=== PATIENT | male | born 1960 | race Caucasian/White ===

== ENCOUNTER 2016-12-04 03:39 | Emergency (ER) | payer MEDICAID ==
[~2016-12-04] VITALS: Ht 175.3 cm; Wt 80.0 kg
[~2016-12-04 03:39] MED LIST: ALBU18HF INH; ASPI-650 PO; ATOR20TA PO; CEFD300C37 PO; DOXY100T PO; ERYT30GE2 EACHEYE; ERYTHROMYCIN EYE EACHEYE; FOLI-17 PO; HYDR-3240 PO; HYDR-3307 PO; HYDR-882 PO; LEVO25TA2 PO; LISI5TAB PO; LISI5TAB7 PO; LORA-446 PO; LOSA25TA5 PO; MAGN400T26 PO; METO25TA2 PO; METO25TA35 PO; OXYC5TAB3 PO; PANT40TA3 PO; PRAV40TA2 PO; PRED20TA PO; THIA100T6 PO; TRAM-28 PO
[2016-12-04] MEDS ORDERED: METHOCARBAMOL 750 MG TABLET ONE (03:59)
[2016-12-04] MEDS ORDERED: KETOROLAC 30 MG/1 ML ONE (03:59)
[2016-12-04] MEDS ORDERED: KETOROLAC 30 MG/1 ML IM ONE (04:00)
[2016-12-04] MEDS ORDERED: METHOCARBAMOL 750 MG TABLET PO ONE (04:00)
[2016-12-04 04:05] VITALS: BP 146/103
[2016-12-04 04:51] LABS: ASPARTATE AMINO TRANSFERASE 57 U/L (15-37); BLOOD UREA NITROGEN 8 mg/dL (7-18)
[2016-12-05] MEDS ORDERED: TRAM50TA2 PO (17:20)
[2016-12-05] MEDS ORDERED: LOSA25TA5 PO (17:20)
== END 2016-12-04 05:55 | disposition left against medical advice (07) ==
LOC: ED 03:56
DX: F10.120 Alcohol abuse with intoxication, uncomplicated (principal); I25.2 Old myocardial infarction; E78.5 Hyperlipidemia, unspecified; I10 Essential (primary) hypertension; Z85.9 Personal history of malignant neoplasm, unspecified; F17.210 Nicotine dependence, cigarettes, uncomplicated
CPT/HCPCS: 36415; 80053; 80307; 85025; 96372; 99284; J1885

== ENCOUNTER 2016-12-05 04:23 | Emergency (ER) | payer MEDICAID ==
[~2016-12-05] VITALS: Ht 175.3 cm; Wt 82.0 kg
[2016-12-05 04:29] VITALS: BP 131/87
[2016-12-05] MEDS ORDERED: TRAM50TA2 PO (17:20)
[2016-12-05] MEDS ORDERED: LOSA25TA5 PO (17:20)
== END 2016-12-05 05:54 | disposition home or self-care (01) ==
LOC: ED 05:48
DX: F10.220 Alcohol dependence with intoxication, uncomplicated (principal); E78.5 Hyperlipidemia, unspecified; I48.91 Unspecified atrial fibrillation; I10 Essential (primary) hypertension; I25.2 Old myocardial infarction; Z85.9 Personal history of malignant neoplasm, unspecified
CPT/HCPCS: 99283

== ENCOUNTER 2016-12-05 11:25 | Observation (INO) | payer MEDICAID ==
[~2016-12-05] VITALS: Ht 175.3 cm; Wt 77.5 kg
[2016-12-05 12:26] LABS: DAU SCREEN DISCLAIMER
[2016-12-05] MEDS ORDERED: CHLORDIAZEPOXIDE 25 MG CAPSULE PO ONE (12:30)
[2016-12-05 12:47] LABS: BLOOD UREA NITROGEN 10 mg/dL (7-18)
[2016-12-05 12:50] LABS: ASPARTATE AMINO TRANSFERASE 73 U/L (15-37)
[2016-12-05 12:51] LABS: ACETAMINOPHEN < 2 mcg/mL (10-30)
[2016-12-05] MEDS ORDERED: TRAM50TA2 PO (17:20)
[2016-12-05] MEDS ORDERED: LOSA25TA5 PO (17:20)
[2016-12-05] MEDS ORDERED: THIAMINE 100 MG/ML, 2ML IM ONE (18:00)
[2016-12-05] MEDS ORDERED: ONDANSETRON 4 MG TABLET PO PRN (18:00)
[2016-12-05] MEDS ORDERED: LORazepam 2 MG/ML, 1ML IM PRN ×2 (18:00)
[2016-12-05] MEDS ORDERED: ACETAMINOPHEN 325 MG TABLET PO PRN (18:00)
[2016-12-05] MEDS ORDERED: LORazepam 1MG TABLET ONE (18:03)
[2016-12-05] MEDS: LORazepam 1MG TABLET PO PRN ×2 (18:06→18:48)
[2016-12-05 18:50] VITALS: BP 128/85
[2016-12-05 19:20] VITALS: BP 112/77
[2016-12-05] MEDS: THIAMINE 100MG TABLET PO SCH (21:18)
[2016-12-06] MEDS: LORazepam 1MG TABLET PO PRN ×3 (04:10→16:53)
[2016-12-06] MEDS: ASPIRIN 81 MG TABLET EC PO SCH (06:00)
[2016-12-06 08:21] VITALS: BP 145/81
[2016-12-06] MEDS: MULTIVITAMIN 1 TABLET PO SCH (08:50)
[2016-12-06] MEDS: FOLIC ACID 1 MG TABLET PO SCH (08:50)
[2016-12-06] MEDS: THIAMINE 100MG TABLET PO SCH (08:50)
[2016-12-06] MEDS: LOSARTAN 25MG TABLET PO SCH (08:51)
[2016-12-06 19:20] VITALS: BP 118/83
[2016-12-07] MEDS: ASPIRIN 81 MG TABLET EC PO SCH (05:46)
[2016-12-07] MEDS ORDERED: CLON-364 PO (07:41)
[2016-12-07] MEDS ORDERED: GABA100C8 PO (07:41)
[2016-12-07] MEDS ORDERED: TAMS-11 PO (07:41)
[2016-12-07] MEDS ORDERED: DULO30CA2 PO (07:41)
[2016-12-07 07:44] VITALS: BP 141/90
[2016-12-07] MEDS: LORazepam 1MG TABLET PO PRN ×2 (08:01→19:56)
[2016-12-07] MEDS: LOSARTAN 25MG TABLET PO SCH (09:00)
[2016-12-07] MEDS: THIAMINE 100MG TABLET PO SCH (09:01)
[2016-12-07] MEDS: FOLIC ACID 1 MG TABLET PO SCH (09:01)
[2016-12-07] MEDS: MULTIVITAMIN 1 TABLET PO SCH (09:01)
[2016-12-07] MEDS ORDERED: LIDODERM 5% PATCH TD PRN (10:00)
[2016-12-07] MEDS ORDERED: LIDODERM 5% PATCH TD SCH (10:00)
[2016-12-07] MEDS: ENOXAPARIN 40 MG/0.4 ML SQ SCH (17:13)
[2016-12-07 20:00] VITALS: BP 148/99
[2016-12-07] MEDS: KETOROLAC 30 MG/1 ML IM SCH (20:26)
[2016-12-08] MEDS: ASPIRIN 81 MG TABLET EC PO SCH (05:37)
[2016-12-08] MEDS: KETOROLAC 30 MG/1 ML IM SCH (05:37)
[2016-12-08 07:57] VITALS: BP 120/84
[2016-12-08] MEDS: LORazepam 1MG TABLET PO PRN ×2 (08:39→12:40)
[2016-12-08] MEDS: LOSARTAN 25MG TABLET PO SCH (08:40)
[2016-12-08] MEDS: THIAMINE 100MG TABLET PO SCH (08:41)
[2016-12-08] MEDS: FOLIC ACID 1 MG TABLET PO SCH (08:41)
[2016-12-08] MEDS: MULTIVITAMIN 1 TABLET PO SCH (08:41)
[2016-12-08] MEDS: KETOROLAC 30 MG/1 ML IM PRN (12:33)
[2016-12-08] MEDS: ENOXAPARIN 40 MG/0.4 ML SQ SCH (16:49)
[2016-12-08 20:00] VITALS: BP 114/82
[2016-12-09 05:59] LABS: BLOOD UREA NITROGEN 21 mg/dL (7-18)
[2016-12-09] MEDS: ASPIRIN 81 MG TABLET EC PO SCH (06:16)
[2016-12-09 08:00] VITALS: BP 126/91
[2016-12-09] MEDS: KETOROLAC 30 MG/1 ML IM PRN ×3 (09:17→20:41)
[2016-12-09] MEDS: MULTIVITAMIN 1 TABLET PO SCH (09:18)
[2016-12-09] MEDS: LORazepam 1MG TABLET PO PRN ×3 (09:18→20:40)
[2016-12-09] MEDS: FOLIC ACID 1 MG TABLET PO SCH (09:18)
[2016-12-09] MEDS: THIAMINE 100MG TABLET PO SCH (09:19)
[2016-12-09] MEDS: LOSARTAN 25MG TABLET PO SCH (09:19)
[2016-12-09] MEDS: ENOXAPARIN 40 MG/0.4 ML SQ SCH (17:00)
[2016-12-09 19:36] VITALS: BP 110/78
[2016-12-10 08:09] VITALS: BP 119/85
[2016-12-10] MEDS: MULTIVITAMIN 1 TABLET PO SCH (08:16)
[2016-12-10] MEDS: LOSARTAN 25MG TABLET PO SCH (08:16)
[2016-12-10] MEDS: ASPIRIN 81 MG TABLET EC PO SCH (08:16)
[2016-12-10] MEDS: THIAMINE 100MG TABLET PO SCH (08:17)
[2016-12-10] MEDS: FOLIC ACID 1 MG TABLET PO SCH (08:36)
[2016-12-10] MEDS: LORazepam 1MG TABLET PO PRN ×3 (08:37→23:23)
[2016-12-10] MEDS: KETOROLAC 30 MG/1 ML IM PRN ×3 (08:38→23:38)
[2016-12-10] MEDS: ENOXAPARIN 40 MG/0.4 ML SQ SCH (16:57)
[2016-12-10 20:02] VITALS: BP 109/81
[2016-12-11] MEDS: MULTIVITAMIN 1 TABLET PO SCH (08:33)
[2016-12-11] MEDS: FOLIC ACID 1 MG TABLET PO SCH (08:33)
[2016-12-11] MEDS: ASPIRIN 81 MG TABLET EC PO SCH (08:33)
[2016-12-11] MEDS: THIAMINE 100MG TABLET PO SCH (08:33)
[2016-12-11] MEDS: LORazepam 1MG TABLET PO PRN ×2 (08:33→16:47)
[2016-12-11] MEDS: LOSARTAN 25MG TABLET PO SCH (08:34)
[2016-12-11] MEDS: KETOROLAC 30 MG/1 ML IM PRN ×3 (08:35→22:38)
[2016-12-11 08:36] VITALS: BP 119/75
[2016-12-11] MEDS: ENOXAPARIN 40 MG/0.4 ML SQ SCH (16:50)
[2016-12-11] MEDS ORDERED: ASPIRIN 81 MG TABLET CHEW PO ONE (17:00)
[2016-12-11 17:15] VITALS: BP 134/94
[2016-12-11 17:47] VITALS: BP 122/80
[2016-12-11 18:00] LABS: IS PT STATUS REG ER OR PRE ER? NO
[2016-12-11 19:45] VITALS: BP 119/83
[2016-12-11 23:41] LABS: IS PT STATUS REG ER OR PRE ER? NO
[2016-12-12 06:12] LABS: BLOOD UREA NITROGEN 17 mg/dL (7-18)
[2016-12-12 06:19] LABS: IS PT STATUS REG ER OR PRE ER? NO
[2016-12-12 08:01] VITALS: BP 130/97
[2016-12-12] MEDS: FOLIC ACID 1 MG TABLET PO SCH (09:06)
[2016-12-12] MEDS: LORazepam 1MG TABLET PO PRN ×2 (09:06→16:56)
[2016-12-12] MEDS: ASPIRIN 81 MG TABLET EC PO SCH (09:06)
[2016-12-12] MEDS: THIAMINE 100MG TABLET PO SCH (09:07)
[2016-12-12] MEDS: MULTIVITAMIN 1 TABLET PO SCH (09:07)
[2016-12-12] MEDS: LOSARTAN 25MG TABLET PO SCH (09:07)
[2016-12-12] MEDS: KETOROLAC 30 MG/1 ML IM PRN ×2 (09:09→16:58)
[2016-12-12] MEDS: ENOXAPARIN 40 MG/0.4 ML SQ SCH (16:54)
[2016-12-12 20:00] VITALS: BP 113/77
== END 2016-12-12 21:00 ==
LOC: ED 13:44 → EDIP 17:05 → 3E 18:29
PROVIDERS: ADMIT Hospitalist; ATTEND Hospitalist
DX: R45.851 Suicidal ideations (principal); F32.9 Major depressive disorder, single episode, unspecified; F41.9 Anxiety disorder, unspecified; E78.5 Hyperlipidemia, unspecified; F17.210 Nicotine dependence, cigarettes, uncomplicated; F43.10 Post-traumatic stress disorder, unspecified; G89.29 Other chronic pain; I10 Essential (primary) hypertension; I48.0 Paroxysmal atrial fibrillation; I25.2 Old myocardial infarction; I25.10 Atherosclerotic heart disease of native coronary artery without angina pectoris; F10.229 Alcohol dependence with intoxication, unspecified; J44.9 Chronic obstructive pulmonary disease, unspecified; Z85.828 Personal history of other malignant neoplasm of skin; Z91.5 Personal history of self-harm; Z98.61 Coronary angioplasty status
CPT/HCPCS: 36415; 80048; 80053; 80307; 80329; 84484; 85025; 93005; 96372; 99285; G0378; J1650; J1885; J3411; G0480

== ENCOUNTER 2017-09-25 08:12 | Emergency (ER) | payer MEDICAID ==
[~2017-09-25] VITALS: Ht 177.8 cm; Wt 75.0 kg
[~2017-09-25 08:12] MED LIST changes: +CLON-364 PO; +DULO30CA2 PO; +GABA-826 PO; +TAMS-11 PO; -TRAM-28 PO; +TRAM-47 PO; +TRAM50TA2 PO
[2017-09-25 08:39] VITALS: BP 148/101
[2017-09-25 09:04] LABS: BASOPHILS # (AUTO) 0.03 x10^3/uL (0-0.1); BASOPHILS % (AUTO) 0 % (0-1); EOSINOPHILS % (AUTO) 1 % (1-7); LYMPHOCYTES # (AUTO) 2.36 x10^3/uL (1-3.4); LYMPHOCYTES % (AUTO) 23 % (22-44); MD NO; MEAN CORPUSCULAR HEMOGLOBIN 32.9 pg (27.5-34.5); MEAN CORPUSCULAR HGB CONC 34.7 g/dL (33.2-36.2); MEAN CORPUSCULAR VOLUME 94.9 fL (81-97); MEAN PLATELET VOLUME 7.6 fL (7.4-10.4); MONOCYTES # (AUTO) 1.05 x10^3/uL (0.2-0.8); MONOCYTES % (AUTO) 10 % (2-9); NEUTROPHILS # (AUTO) 6.74 x10^3/uL (1.8-6.8); NEUTROPHILS % (AUTO) 66 % (42-75); PLATELET COUNT 359 x10^3/uL (130-400); RED CELL DISTRIBUTION WIDTH 14.5 % (9.4-14.8)
[2017-09-25 09:10] LABS: ALANINE AMINOTRANSFERASE 48 U/L (12-78); ALBUMIN 3.8 g/dL (3.4-5.0); ANION GAP 13 mmol/L (5-15); CALCIUM 8.3 mg/dL (8.5-10.1); CHLORIDE 104 mmol/L (98-107); CREATININE 1.16 mg/dL (0.7-1.3); SALICYLATE LEVEL 3.4 mg/dL (2.8-20.0)
[2017-09-25 09:12] LABS: ALKALINE PHOSPHATASE 121 U/L (45-117); BILIRUBIN,TOTAL 1.6 mg/dL (0.2-1.0); TOTAL PROTEIN 7.2 g/dL (6.4-8.2)
[2017-09-25 09:13] LABS: ACETAMINOPHEN < 2 mcg/mL (10-30)
[2017-09-25 09:18] LABS: AMPHETAMINE SCREEN, URINE Negative (Negative); BARBITURATE SCREEN, URINE Negative (Negative); BENZODIAZEPINE SCREEN, URINE Negative (Negative); CANNABINOID SCREEN, URINE Negative (Negative); COCAINE SCREEN, URINE Negative (Negative); METHADONE SCREEN, URINE Negative (Negative); OPIATE SCREEN, URINE Negative (Negative)
[2017-09-25] MEDS ORDERED: LORazepam 1MG TABLET ONE (09:21)
[2017-09-25] MEDS: LORazepam 2 MG/ML, 1ML IVPush ONE ×2 (09:24→09:30)
[2017-09-25] MEDS ORDERED: LORazepam 1MG TABLET PO ONE (11:00)
[2017-09-26] MEDS ORDERED: ASPI-496 PO (16:11)
== END 2017-09-25 11:39 | disposition home or self-care (01) ==
LOC: ED 09:12
DX: F41.1 Generalized anxiety disorder (principal); F32.9 Major depressive disorder, single episode, unspecified; I48.91 Unspecified atrial fibrillation; E78.5 Hyperlipidemia, unspecified; I10 Essential (primary) hypertension; I25.10 Atherosclerotic heart disease of native coronary artery without angina pectoris; Z79.899 Other long term (current) drug therapy
CPT/HCPCS: 36415; 80053; 80307; 80329; 85025; 99284; G0480; J2060

== ENCOUNTER 2017-09-26 11:50 | Observation (INO) | payer MEDICAID ==
[~2017-09-26] VITALS: Ht 177.8 cm; Wt 75.0 kg
[2017-09-26] MEDS ORDERED: LORazepam 1MG TABLET ONE (12:52)
[2017-09-26] MEDS ORDERED: LORazepam 1MG TABLET PO ONE (13:00)
[2017-09-26 13:13] LABS: BASOPHILS # (AUTO) 0.03 x10^3/uL (0-0.1); BASOPHILS % (AUTO) 0 % (0-1); EOSINOPHILS # (AUTO) 0.09 x10^3/uL (0-0.4); EOSINOPHILS % (AUTO) 1 % (1-7); LYMPHOCYTES # (AUTO) 2.45 x10^3/uL (1-3.4); LYMPHOCYTES % (AUTO) 27 % (22-44); MD NO; MEAN CORPUSCULAR HEMOGLOBIN 32.7 pg (27.5-34.5); MEAN CORPUSCULAR HGB CONC 34.3 g/dL (33.2-36.2); MEAN CORPUSCULAR VOLUME 95.3 fL (81-97); MEAN PLATELET VOLUME 7.6 fL (7.4-10.4); MONOCYTES # (AUTO) 0.76 x10^3/uL (0.2-0.8); MONOCYTES % (AUTO) 8 % (2-9); NEUTROPHILS # (AUTO) 5.79 x10^3/uL (1.8-6.8); NEUTROPHILS % (AUTO) 64 % (42-75); PLATELET COUNT 348 x10^3/uL (130-400); RED BLOOD COUNT 5.27 x10^6/uL (4.38-5.82)
[2017-09-26 13:25] LABS: ALBUMIN 3.7 g/dL (3.4-5.0); ANION GAP 15 mmol/L (5-15); CALCIUM 7.8 mg/dL (8.5-10.1); CHLORIDE 108 mmol/L (98-107)
[2017-09-26 13:29] LABS: ALANINE AMINOTRANSFERASE 42 U/L (12-78); ALKALINE PHOSPHATASE 98 U/L (45-117); CREATININE 1.07 mg/dL (0.7-1.3); TOTAL PROTEIN 6.9 g/dL (6.4-8.2)
[2017-09-26 13:31] LABS: ACETAMINOPHEN < 2 mcg/mL (10-30); SALICYLATE LEVEL < 1.7 mg/dL (2.8-20.0)
[2017-09-26 14:13] LABS: AMPHETAMINE SCREEN, URINE Negative (Negative); BARBITURATE SCREEN, URINE Negative (Negative); BENZODIAZEPINE SCREEN, URINE Negative (Negative); CANNABINOID SCREEN, URINE Negative (Negative); COCAINE SCREEN, URINE Negative (Negative); METHADONE SCREEN, URINE Negative (Negative); OPIATE SCREEN, URINE Negative (Negative)
[2017-09-26] MEDS ORDERED: ASPI-496 PO (16:11)
[2017-09-26] MEDS ORDERED: ONDANSETRON ODT 4 MG PO PRN (17:30)
[2017-09-26] MEDS ORDERED: LORazepam 1MG TABLET PO PRN ×4 (17:30)
[2017-09-26] MEDS ORDERED: ACETAMINOPHEN 325 MG TABLET PO PRN (17:30)
[2017-09-26] MEDS ORDERED: KETOROLAC 30 MG/1 ML IVPush PRN (17:30)
[2017-09-26] MEDS: FOLIC ACID 1 MG TABLET PO SCH (17:30)
[2017-09-26] MEDS ORDERED: LORazepam 0.5MG TABLET PO PRN (17:30)
[2017-09-26] MEDS ORDERED: DOCUSATE 100 MG CAPSULE PO PRN (17:30)
[2017-09-26] MEDS ORDERED: KETOROLAC 30 MG/1 ML IM ONE (19:00)
[2017-09-26] MEDS ORDERED: THIAMINE 100MG TABLET ONE (20:11)
[2017-09-26] MEDS ORDERED: ENOXAPARIN 40 MG/0.4 ML ONE (20:11)
[2017-09-26] MEDS: ENOXAPARIN 40 MG/0.4 ML SQ SCH (20:18)
[2017-09-26] MEDS: THIAMINE 100MG TABLET PO SCH (20:18)
[2017-09-27 05:57] LABS: ANION GAP 9 mmol/L (5-15); CHLORIDE 104 mmol/L (98-107)
[2017-09-27] MEDS: THIAMINE 100MG TABLET PO SCH (09:00)
[2017-09-27] MEDS: FOLIC ACID 1 MG TABLET PO SCH (09:00)
[2017-09-27] MEDS: LOSARTAN 25MG TABLET PO SCH (09:00)
[2017-09-27] MEDS: ASPIRIN 81 MG TABLET EC PO SCH (09:08)
[2017-09-27] MEDS: MULTIVITAMINS/MINERALS TABLET PO SCH (09:09)
[2017-09-27] MEDS ORDERED: LORazepam 1MG TABLET ONE (14:13)
[2017-09-27] MEDS: METHOCARBAMOL 500 MG TABLET PO PRN (15:04)
[2017-09-27] MEDS ORDERED: ENOXAPARIN 40 MG/0.4 ML ONE (22:23)
[2017-09-27] MEDS: ENOXAPARIN 40 MG/0.4 ML SQ SCH (22:33)
[2017-09-28 00:17] VITALS: BP 146/102
[2017-09-28] MEDS: METHOCARBAMOL 500 MG TABLET PO PRN (01:50)
[2017-09-28 08:18] VITALS: BP 154/88
[2017-09-28] MEDS: MULTIVITAMINS/MINERALS TABLET PO SCH (09:00)
[2017-09-28] MEDS: LOSARTAN 25MG TABLET PO SCH (09:00)
[2017-09-28] MEDS: ASPIRIN 81 MG TABLET EC PO SCH (10:17)
[2017-09-28] MEDS: FOLIC ACID 1 MG TABLET PO SCH (10:18)
[2017-09-28] MEDS: SERTRALINE 50MG TABLET PO SCH (10:18)
[2017-09-28] MEDS: THIAMINE 100MG TABLET PO SCH (10:18)
[2017-09-28] MEDS ORDERED: LIDODERM 5% PATCH TD ONE (11:00)
[2017-09-28] MEDS: KETOROLAC 30 MG/1 ML IM SCH ×3 (11:07→21:23)
[2017-09-28] MEDS: ACETAMINOPHEN 500 MG TABLET PO SCH ×4 (11:07→23:38)
[2017-09-28] MEDS: METHOCARBAMOL 750 MG TABLET PO SCH ×2 (11:07→19:41)
[2017-09-28] MEDS: ENOXAPARIN 40 MG/0.4 ML SQ SCH (17:30)
[2017-09-28 19:40] VITALS: BP 147/93
[2017-09-29 07:50] VITALS: BP 148/94
[2017-09-29] MEDS: LOSARTAN 25MG TABLET PO SCH (08:51)
[2017-09-29] MEDS: ASPIRIN 81 MG TABLET EC PO SCH (08:51)
[2017-09-29] MEDS: FOLIC ACID 1 MG TABLET PO SCH (08:52)
[2017-09-29] MEDS: THIAMINE 100MG TABLET PO SCH (08:52)
[2017-09-29] MEDS: SERTRALINE 50MG TABLET PO SCH (08:52)
[2017-09-29] MEDS: MULTIVITAMINS/MINERALS TABLET PO SCH (09:00)
[2017-09-29] MEDS ORDERED: IBUPROFEN 800 MG TABLET PO PRN (12:30)
[2017-09-29] MEDS ORDERED: METHOCARBAMOL 750 MG TABLET PO PRN (12:30)
[2017-09-29] MEDS ORDERED: IBUPROFEN 600 MG TABLET ONE (12:40)
[2017-09-29] MEDS ORDERED: IBUPROFEN 200 MG TABLET ONE (12:41)
[2017-09-29] MEDS ORDERED: LIDODERM 5% PATCH TD SCH (14:00)
== END 2017-09-29 16:58 ==
LOC: ED 15:36 → EDIP 15:37 → ED 15:48 → 2N 09-28 00:13
PROVIDERS: ADMIT Internal Medicine; ATTEND Internal Medicine
DX: T14.91XA Suicide attempt, initial encounter (principal); F33.2 Major depressive disorder, recurrent severe without psychotic features; M54.9 Dorsalgia, unspecified; G89.29 Other chronic pain; E87.6 Hypokalemia; E87.2 Acidosis; F10.229 Alcohol dependence with intoxication, unspecified; E83.51 Hypocalcemia; I10 Essential (primary) hypertension; I48.0 Paroxysmal atrial fibrillation; J44.9 Chronic obstructive pulmonary disease, unspecified; E78.5 Hyperlipidemia, unspecified; X78.9XXA Intentional self-harm by unspecified sharp object, initial encounter; Y93.89 Activity, other specified; Y92.89 Other specified places as the place of occurrence of the external cause; Y99.8 Other external cause status; I25.10 Atherosclerotic heart disease of native coronary artery without angina pectoris; F17.210 Nicotine dependence, cigarettes, uncomplicated; Z80.1 Family history of malignant neoplasm of trachea, bronchus and lung; Z82.49 Family history of ischemic heart disease and other diseases of the circulatory system; Z85.828 Personal history of other malignant neoplasm of skin; Z91.5 Personal history of self-harm; Z98.61 Coronary angioplasty status
CPT/HCPCS: 36415; 72114; 80048; 80053; 80307; 80329; 82330; 82550; 85025; 96372; 96374; 99285; G0378; J1650; J1885; G0480

== ENCOUNTER 2018-03-29 17:43 | Emergency (ER) | payer MEDICAID ==
[~2018-03-29] VITALS: Ht 175.3 cm; Wt 78.0 kg
[~2018-03-29 17:43] MED LIST changes: +ASPI-496 PO; -CLON-364 PO; +CLON0.5T11 PO; -THIA100T6 PO; +THIA100T67 PO
[2018-03-29 17:49] VITALS: BP 105/73
== END 2018-03-29 18:12 | disposition home or self-care (01) ==
LOC: ED 18:06
DX: F10.120 Alcohol abuse with intoxication, uncomplicated (principal); E78.5 Hyperlipidemia, unspecified; F32.9 Major depressive disorder, single episode, unspecified; I25.2 Old myocardial infarction; I10 Essential (primary) hypertension
CPT/HCPCS: 99283

== ENCOUNTER 2018-03-30 00:58 | Emergency (ER) | payer MEDICAID ==
[~2018-03-30] VITALS: Ht 175.3 cm; Wt 78.0 kg
[2018-03-30 01:52] LABS: BASOPHILS # (AUTO) 0.06 x10^3/uL (0-0.1); BASOPHILS % (AUTO) 1 % (0-1); EOSINOPHILS # (AUTO) 0.12 x10^3/uL (0-0.4); EOSINOPHILS % (AUTO) 1 % (1-7); LYMPHOCYTES # (AUTO) 3.88 x10^3/uL (1-3.4); LYMPHOCYTES % (AUTO) 38 % (22-44); MD NO; MEAN CORPUSCULAR HGB CONC 34.4 g/dL (33.2-36.2); MEAN CORPUSCULAR VOLUME 96.1 fL (81-97); MEAN PLATELET VOLUME 7.7 fL (7.4-10.4); MONOCYTES # (AUTO) 0.82 x10^3/uL (0.2-0.8); MONOCYTES % (AUTO) 8 % (2-9); NEUTROPHILS # (AUTO) 5.29 x10^3/uL (1.8-6.8); NEUTROPHILS % (AUTO) 52 % (42-75); PLATELET COUNT 258 x10^3/uL (130-400); RED BLOOD COUNT 4.76 x10^6/uL (4.38-5.82); RED CELL DISTRIBUTION WIDTH 15.8 % (9.4-14.8)
[2018-03-30 02:04] LABS: ALANINE AMINOTRANSFERASE 21 U/L (12-78); ALBUMIN 3.4 g/dL (3.4-5.0); ANION GAP 11 mmol/L (5-15); CALCIUM 8.1 mg/dL (8.5-10.1); CHLORIDE 111 mmol/L (98-107); SALICYLATE LEVEL 2.5 mg/dL (2.8-20.0)
[2018-03-30 02:07] LABS: ALKALINE PHOSPHATASE 108 U/L (45-117); BILIRUBIN,TOTAL 0.2 mg/dL (0.2-1.0); CREATININE 1.27 mg/dL (0.7-1.3); TOTAL PROTEIN 6.4 g/dL (6.4-8.2)
[2018-03-30 02:09] LABS: AMPHETAMINE SCREEN, URINE Negative (Negative); BARBITURATE SCREEN, URINE Negative (Negative); BENZODIAZEPINE SCREEN, URINE Negative (Negative); CANNABINOID SCREEN, URINE Negative (Negative); COCAINE SCREEN, URINE Negative (Negative); METHADONE SCREEN, URINE Negative (Negative); OPIATE SCREEN, URINE Negative (Negative)
[2018-03-30 02:16] LABS: ACETAMINOPHEN < 2 mcg/mL (10-30)
[2018-03-30 08:16] VITALS: BP 141/94
== END 2018-03-30 09:12 | disposition home or self-care (01) ==
LOC: ED 05:15
DX: F10.220 Alcohol dependence with intoxication, uncomplicated (principal); E78.5 Hyperlipidemia, unspecified; I10 Essential (primary) hypertension; I48.91 Unspecified atrial fibrillation; I25.10 Atherosclerotic heart disease of native coronary artery without angina pectoris; Z72.9 Problem related to lifestyle, unspecified
CPT/HCPCS: 36415; 80053; 80307; 80329; 85025; 99284; G0480

== ENCOUNTER → 2018-11-25 | Outpatient (CLI) | payer MEDICAID ==
[~2018-11-25] MED LIST changes: +HYDR-3653 PO; -HYDR-882 PO; +LOSA25TA25 PO; -LOSA25TA5 PO; +REGADENOSON 0.4 MG/5 ML SYRINGE ONE
== END | disposition home or self-care (01) ==
LOC: CFH 08:36
PROVIDERS: ATTEND Internal Medicine Cardiovascular Disease
DX: I25.10 Atherosclerotic heart disease of native coronary artery without angina pectoris (principal); I31.0 Chronic adhesive pericarditis
CPT/HCPCS: 78452; 93017; A9502; J2785

== ENCOUNTER 2019-01-15 14:54 | Emergency (ER) | payer MEDICAID ==
[~2019-01-15] VITALS: Ht 177.8 cm; Wt 85.4 kg
[~2019-01-15 14:54] MED LIST changes: -REGADENOSON 0.4 MG/5 ML SYRINGE ONE
[2019-01-15 15:15] LABS: BASOPHILS # (AUTO) 0.05 x10^3/uL (0-0.1); BASOPHILS % (AUTO) 0 % (0-1); EOSINOPHILS % (AUTO) 1 % (1-7); LYMPHOCYTES % (AUTO) 26 % (22-44); MD NO; MEAN CORPUSCULAR HEMOGLOBIN 32.1 pg (27.5-34.5); MEAN CORPUSCULAR HGB CONC 33.5 g/dL (33.2-36.2); MEAN CORPUSCULAR VOLUME 95.8 fL (81-97); MEAN PLATELET VOLUME 7.8 fL (7.4-10.4); MONOCYTES # (AUTO) 0.86 x10^3/uL (0.2-0.8); MONOCYTES % (AUTO) 6 % (2-9); NEUTROPHILS % (AUTO) 67 % (42-75); PLATELET COUNT 344 x10^3/uL (130-400); RED BLOOD COUNT 5.37 x10^6/uL (4.38-5.82); RED CELL DISTRIBUTION WIDTH 13.1 % (9.4-14.8)
[2019-01-15 15:26] LABS: INTERNATIONAL NORMALIZED RATIO 0.92 (0.93-1.1); PROTHROMBIN TIME 9.7 Seconds (9.6-11.5)
--- NOTE | 2019-01-15 15:36 | NUR ---
Patient returned from CT at this time. Alert & oriented x4 with no change in neuro status.
[2019-01-15] MEDS ORDERED: LORA-247 PO (15:44)
[2019-01-15] MEDS ORDERED: MULT-658 PO (15:44)
[2019-01-15] MEDS ORDERED: TAMS-11 PO (15:44)
[2019-01-15] MEDS ORDERED: OMEG1CAP23 PO (15:44)
[2019-01-15] MEDS ORDERED: [UNRECOGNIZED DRUG - REMARK] (15:44)
--- NOTE | 2019-01-15 15:45 | NUR ---
LATE ENTRY DUE TO CODE NEURO AND EMERGENT CT SCAN: Patient arrives reporting right eye "blackness" (vision loss) and partial left eye vision loss at 1400 today while riding on public transportation. Patient states this resolved spontaneously, he now reports dizziness and neck pain. Patient is alert and oriented with no weakness or vision changes at time of assessment. Plan of care discussed with patient, he verbalizes understanding. Continuous blood pressure, SPO2 and cardiac monitoring in place, call gutiérrez within reach.
[2019-01-15] MEDS ORDERED: OMNIPAQUE 350 MG/ML, 100ML BOTTLE ONE (15:47)
--- NOTE | 2019-01-15 16:43 | NUR ---
Plan of care updated with patient, questions answered, call gutiérrez within reach.
[2019-01-15 17:44] VITALS: BP 109/80
--- NOTE | 2019-01-15 17:44 | NUR ---
Patient resting comfortably, no requests at this time. All results posting, waiting for provider to recheck.
--- NOTE | 2019-01-15 18:16 | NUR ---
Discharge instructions discussed with patient including when to return to emergency department, patient verbalizes understanding, questions answered. Patient ambulates with steady gait to discharge desk in no acute distress.
== END 2019-01-15 18:19 | disposition home or self-care (01) ==
LOC: ED 15:42
DX: H53.121 Transient visual loss, right eye (principal); R51 Headache; I10 Essential (primary) hypertension; I25.2 Old myocardial infarction; I11.9 Hypertensive heart disease without heart failure; E78.5 Hyperlipidemia, unspecified; I48.91 Unspecified atrial fibrillation; I25.10 Atherosclerotic heart disease of native coronary artery without angina pectoris; Z90.89 Acquired absence of other organs; Z94.9 Transplanted organ and tissue status, unspecified; F17.200 Nicotine dependence, unspecified, uncomplicated
CPT/HCPCS: 36415; 70450; 70496; 70498; 70551; 80047; 82962; 85025; 85610; 85730; 93005; 99284; Q9967

== ENCOUNTER 2019-09-24 10:14 | Observation (INO) | payer MEDICAID ==
[~2019-09-24] VITALS: Ht 208.3 cm; Wt 85.0 kg
[~2019-09-24 10:14] MED LIST changes: +ATEN25TA PO; +CLON-364 PO; -CLON0.5T11 PO; -HYDR-3307 PO; +HYDR-36 PO; +LORA-247 PO; +MULT-658 PO; +OMEG-123 PO; +OMEG1CAP23 PO; +[UNRECOGNIZED DRUG - OTHER] PO; +[UNRECOGNIZED DRUG - REMARK]
[2019-09-24 10:44] VITALS: BP 123/91
[2019-09-24] MEDS ORDERED: FENTANYL PF 100 MCG/2ML ONE ×2 (11:59→13:15)
[2019-09-24] MEDS ORDERED: MIDAZOLAM 1 MG/ML, 5ML ONE (12:00)
[2019-09-24] MEDS ORDERED: LIDOCAINE-MPF 1%, 5ML ONE (12:00)
[2019-09-24] MEDS ORDERED: VERAPAMIL 2.5 MG/ML, 2ML ONE (12:00)
[2019-09-24] MEDS ORDERED: BIVALIRUDIN 250 MG ONE ×2 (12:00→13:47)
[2019-09-24] MEDS ORDERED: PRASUGREL 10 MG TABLET ONE (12:02)
[2019-09-24] MEDS ORDERED: DIPHENHYDRAMINE 50 MG/ML, 1ML ONE (12:40)
[2019-09-24] MEDS ORDERED: MIDAZOLAM 1 MG/ML, 2ML ONE (13:15)
[2019-09-24] MEDS ORDERED: BIVALIRUDIN 250 MG in SODIUM CHLORIDE 0.9% 50 ML IV SCH (13:38)
[2019-09-24] MEDS ORDERED: ONDANSETRON 2MG/ML, 2ML IVPush PRN (14:00)
[2019-09-24] MEDS ORDERED: ZOLPIDEM 5MG TABLET PO PRN (14:00)
[2019-09-24] MEDS ORDERED: ACETAMINOPHEN 325 MG TABLET PO PRN (14:00)
[2019-09-24] MEDS ORDERED: HYDROcodone/APAP 5/325 TABLET ONE (15:48)
[2019-09-24] MEDS: HYDROcodone/APAP 5/325 TABLET PO PRN ×2 (15:53→20:38)
[2019-09-24] MEDS ORDERED: FUROSEMIDE 40 MG/4 ML ONE (16:04)
[2019-09-24] MEDS ORDERED: FUROSEMIDE 20 MG/2 ML IV ONE (16:30)
[2019-09-24] MEDS: SODIUM CHLORIDE 0.9% 1,000 ML IV SCH ×2 (18:47→20:45)
[2019-09-24 19:52] VITALS: BP 111/69
[2019-09-24] MEDS ORDERED: TAMSULOSIN 0.4 MG CAP.ER.24H PO SCH (21:00)
[2019-09-25 00:11] VITALS: BP 128/92
[2019-09-25 04:40] LABS: ANION GAP 7 mmol/L (5-15); CALCIUM 8.8 mg/dL (8.5-10.1); CHLORIDE 106 mmol/L (98-107)
[2019-09-25 04:41] LABS: CREATININE 1.42 mg/dL (0.7-1.3)
[2019-09-25] MEDS: SODIUM CHLORIDE 0.9% 1,000 ML IV SCH (04:48)
[2019-09-25 06:43] VITALS: BP 119/81
[2019-09-25] MEDS ORDERED: PRAS10TA4 PO (07:45)
[2019-09-25] MEDS ORDERED: METO25TA91 PO (07:45)
[2019-09-25] MEDS ORDERED: OMEGA-3/FISH OIL CAPSULE PO SCH (09:00)
[2019-09-25] MEDS ORDERED: PRASUGREL 10 MG TABLET PO SCH (09:00)
[2019-09-25] MEDS ORDERED: ASPIRIN 81 MG TABLET EC PO SCH (09:00)
[2019-09-25] MEDS ORDERED: MULTIVITAMIN 1 TABLET PO SCH (09:00)
[2019-09-25] MEDS: LOSARTAN 25MG TABLET PO SCH ×2 (09:13→09:15)
[2019-09-25] MEDS: HYDROcodone/APAP 5/325 TABLET PO PRN (09:29)
== END 2019-09-25 10:25 | disposition home or self-care (01) ==
LOC: CACL 10:14 → ORIP 13:38 → 5SO 18:11 → DCLOUNGE 09-25 10:02
PROVIDERS: ADMIT Internal Medicine Cardiovascular Disease; ATTEND Internal Medicine Cardiovascular Disease
DX: I25.119 Atherosclerotic heart disease of native coronary artery with unspecified angina pectoris (principal); R94.30 Abnormal result of cardiovascular function study, unspecified; I10 Essential (primary) hypertension; I71.2 Thoracic aortic aneurysm, without rupture; E78.5 Hyperlipidemia, unspecified; E78.00 Pure hypercholesterolemia, unspecified; R00.2 Palpitations; R55 Syncope and collapse; F17.200 Nicotine dependence, unspecified, uncomplicated; Z79.82 Long term (current) use of aspirin; Z79.899 Other long term (current) drug therapy; Z88.0 Allergy status to penicillin
CPT/HCPCS: 36415; 71045; 80048; 93005; 93454; 96374; 99156; 99157; C1725; C1769; C1874; C1887; C1894; C9600; G0378; J0583; J1200; J1940; J2250; J3010; Q9967

== ENCOUNTER 2019-09-26 19:58 | Emergency (ER) | payer MEDICAID ==
[~2019-09-26] VITALS: Ht 177.8 cm; Wt 82.2 kg
[~2019-09-26 19:58] MED LIST changes: +METO25TA91 PO; +PRAS10TA4 PO
--- NOTE | 2019-09-26 20:11 | NUR ---
PT AMBULATES FROM TRIAGE TO ROOM WITH STEADY GAIT.
[2019-09-26] MEDS ORDERED: KETOROLAC 30 MG/1 ML ONE (20:28)
[2019-09-26] MEDS ORDERED: ONDANSETRON 2MG/ML, 2ML ONE (20:28)
[2019-09-26] MEDS ORDERED: SODIUM CHLORIDE FLUSH 10ML SYR IVF ONE (20:30)
[2019-09-26] MEDS ORDERED: MORPHINE SULFATE 4 MG/ML, 1ML IVPush PRN (20:30)
[2019-09-26] MEDS ORDERED: ONDANSETRON 2MG/ML, 2ML IVPush ONE (20:30)
[2019-09-26] MEDS ORDERED: KETOROLAC 30 MG/1 ML IVPush ONE (20:30)
--- NOTE | 2019-09-26 20:33 | NUR ---
IV ACCESS ESTABLISHED. PT TAKEN TO CT VIA GURNEY AT THIS TIME. LABS DRAWN AND PT MEDICATED PER SEP PRIOR TO PT TRANSPORT TO CT.
[2019-09-26 20:41] LABS: BASOPHILS # (AUTO) 0.06 x10^3/uL (0-0.1); BASOPHILS % (AUTO) 1 % (0-1); EOSINOPHILS # (AUTO) 0.16 x10^3/uL (0-0.4); EOSINOPHILS % (AUTO) 2 % (1-7); LYMPHOCYTES # (AUTO) 2.58 x10^3/uL (1-3.4); LYMPHOCYTES % (AUTO) 25 % (22-44); MD NO; MEAN CORPUSCULAR HEMOGLOBIN 32.5 pg (27.5-34.5); MEAN CORPUSCULAR HGB CONC 33.6 g/dL (33.2-36.2); MEAN CORPUSCULAR VOLUME 96.8 fL (81-97); MEAN PLATELET VOLUME 7.9 fL (7.4-10.4); MONOCYTES # (AUTO) 0.85 x10^3/uL (0.2-0.8); MONOCYTES % (AUTO) 8 % (2-9); NEUTROPHILS # (AUTO) 6.81 x10^3/uL (1.8-6.8); NEUTROPHILS % (AUTO) 65 % (42-75); PLATELET COUNT 337 x10^3/uL (130-400); RED BLOOD COUNT 5.77 x10^6/uL (4.38-5.82)
[2019-09-26 20:48] LABS: ALANINE AMINOTRANSFERASE 24 U/L (12-78); ANION GAP 7 mmol/L (5-15); CALCIUM 8.9 mg/dL (8.5-10.1); CHLORIDE 105 mmol/L (98-107); CREATININE 1.34 mg/dL (0.7-1.3)
[2019-09-26 20:50] LABS: ALKALINE PHOSPHATASE 101 U/L (45-117); BILIRUBIN,TOTAL 0.9 mg/dL (0.2-1.0); TOTAL PROTEIN 7.9 g/dL (6.4-8.2)
[2019-09-26] MEDS ORDERED: MORPHINE SULFATE 4 MG/ML, 1ML ONE (20:50)
--- NOTE | 2019-09-26 20:56 | NUR ---
PT MEDICATED PER MAR FOR PAIN
--- NOTE | 2019-09-26 21:55 | NUR ---
PT PROVIDED WATER AND SNACK PER REQUEST. FOOD AND LIQUIDS APPROVED BY ERP.
[2019-09-26 21:59] LABS: MICROSCOPIC NOT IND
[2019-09-26 22:03] LABS: CULTURE INDICATED? NO
--- NOTE | 2019-09-26 22:08 | NUR ---
REPORT RECEIVED FROM GARY LIRA. PLAN OF CARE DISCUSSED.
[2019-09-26 23:02] VITALS: BP 118/85
--- NOTE | 2019-09-26 23:04 | NUR ---
Patient/Caregiver given discharge instructions and they have confirmed that they understand the instructions. Patient ambulatory with steady gait.
== END 2019-09-26 23:05 | disposition home or self-care (01) ==
LOC: ED 21:32
DX: N20.2 Calculus of kidney with calculus of ureter (principal); F17.200 Nicotine dependence, unspecified, uncomplicated; I10 Essential (primary) hypertension; I25.10 Atherosclerotic heart disease of native coronary artery without angina pectoris; I25.2 Old myocardial infarction; I48.91 Unspecified atrial fibrillation; E78.5 Hyperlipidemia, unspecified; Z90.49 Acquired absence of other specified parts of digestive tract
CPT/HCPCS: 36415; 74176; 80053; 81003; 83690; 85025; 96374; 96375; 99284; J1885; J2270; J2405

== ENCOUNTER 2019-10-23 21:06 | Emergency (ER) | payer MEDICAID ==
[~2019-10-23] VITALS: Ht 177.8 cm; Wt 79.0 kg
--- NOTE | 2019-10-23 21:29 | NUR ---
Patient presents to ER c/o CP which he describes as heavy. He states it starts at the left side of his chest across and into the right side of his back. Patient states as he was driving here he also experienced right leg pain. He c/o nausea and SOB. Patient states he dry heaved once but did not vomit. Patient had stents placed approx 1 month ago. Patient is in NAD. Respirations even and unlabored. No diaphoresis noted.
[2019-10-23 21:50] LABS: BASOPHILS # (AUTO) 0.09 x10^3/uL (0-0.1); BASOPHILS % (AUTO) 1 % (0-1); EOSINOPHILS # (AUTO) 0.06 x10^3/uL (0-0.4); EOSINOPHILS % (AUTO) 1 % (1-7); LYMPHOCYTES # (AUTO) 2.88 x10^3/uL (1-3.4); LYMPHOCYTES % (AUTO) 24 % (22-44); MD NO; MEAN CORPUSCULAR HGB CONC 34.1 g/dL (33.2-36.2); MEAN CORPUSCULAR VOLUME 96.9 fL (81-97); MEAN PLATELET VOLUME 7.7 fL (7.4-10.4); MONOCYTES # (AUTO) 1.01 x10^3/uL (0.2-0.8); MONOCYTES % (AUTO) 8 % (2-9); NEUTROPHILS # (AUTO) 8.04 x10^3/uL (1.8-6.8); NEUTROPHILS % (AUTO) 67 % (42-75); PLATELET COUNT 302 x10^3/uL (130-400); RED BLOOD COUNT 5.45 x10^6/uL (4.38-5.82); RED CELL DISTRIBUTION WIDTH 13.4 % (9.4-14.8)
[2019-10-23 22:00] LABS: ALANINE AMINOTRANSFERASE 76 U/L (12-78); ALBUMIN 4.2 g/dL (3.4-5.0); ANION GAP 10 mmol/L (5-15); CALCIUM 9.1 mg/dL (8.5-10.1); CHLORIDE 105 mmol/L (98-107); CREATININE 1.18 mg/dL (0.7-1.3)
[2019-10-23 22:05] LABS: ALKALINE PHOSPHATASE 130 U/L (45-117); BILIRUBIN,TOTAL 1.4 mg/dL (0.2-1.0); TOTAL PROTEIN 7.7 g/dL (6.4-8.2); TROPONIN I < 0.015 ng/mL (0.000-0.045)
[2019-10-23] MEDS ORDERED: POTASSIUM CHLORIDE 20 MEQ TAB.ER.PRT PO ONE (22:30)
[2019-10-23] MEDS ORDERED: SODIUM CHLORIDE FLUSH 10ML SYR IVF ONE (22:30)
[2019-10-23] MEDS ORDERED: POTASSIUM CHLORIDE 20 MEQ TAB.ER.PRT ONE (22:45)
[2019-10-23] MEDS ORDERED: ONDANSETRON 2MG/ML, 2ML ONE (23:05)
--- NOTE | 2019-10-23 23:07 | NUR ---
Patient is nauseous. Admin meds per mar.
--- NOTE | 2019-10-23 23:17 | NUR ---
Patient to CT.
[2019-10-23] MEDS ORDERED: ONDANSETRON 2MG/ML, 2ML IVPush ONE (23:30)
[2019-10-23] MEDS ORDERED: OMNIPAQUE 350 MG/ML, 100ML BOTTLE ONE (23:38)
[2019-10-24] MEDS ORDERED: ASPIRIN 81 MG TABLET CHEW ONE (00:26)
[2019-10-24 00:29] VITALS: BP 128/75
[2019-10-24] MEDS ORDERED: ASPIRIN 81 MG TABLET CHEW PO ONE (00:30)
--- NOTE | 2019-10-24 00:38 | NUR ---
Discharge instructions given. All questions and concerns addressed. Patient ambulatory with a steady gait. Belongings with patient.
== END 2019-10-24 00:39 | disposition home or self-care (01) ==
LOC: ED 22:59
DX: R07.2 Precordial pain (principal); I10 Essential (primary) hypertension; E78.5 Hyperlipidemia, unspecified; I25.10 Atherosclerotic heart disease of native coronary artery without angina pectoris; I48.91 Unspecified atrial fibrillation; F17.200 Nicotine dependence, unspecified, uncomplicated
CPT/HCPCS: 36415; 71045; 71275; 74175; 80053; 80307; 84484; 85025; 93005; 96374; 99285; J2405; Q9967

== ENCOUNTER 2020-02-08 16:32 | Emergency (ER) | payer MEDICAID ==
[~2020-02-08] VITALS: Ht 177.8 cm; Wt 80.0 kg
[~2020-02-08 16:32] MED LIST changes: +HYDR-3246 PO; -HYDR-36 PO
[2020-02-08 16:44] VITALS: BP 130/82
--- NOTE | 2020-02-08 16:50 | NUR ---
PT BIB [facility] FOR C/O 2 WEEKS OF WEAKNESS AND SOB WORSENING IN THE LAST FEW DAYS. PT STATES HE FELT MARKEDLY WEAKER TODAY AND ALSO HAD CHEST PRESSURE. STENT FOR OH THIS PAST AUGUST. ST ELEVATION NOTED IN LEAD 3 PER [facility]. PT ALSO C/O DIARRHEA FOR A FEW DAYS LAST WEEK. DENIES COUGH OR FEVER. PT ON ANTICOAGULANTS. GIVEN 2 NITRO TABS EN ROUTE, PT REFUSED ASA BECAUSE OF UNDERLYING ANTICOAGULANT USE. CHANGED INTO GOWN, ATTACHED TO MONITORS. EKG DONE. CALL LIGHT IN REACH.
[2020-02-08 17:21] LABS: BASOPHILS # (AUTO) 0.06 x10^3/uL (0-0.1); BASOPHILS % (AUTO) 1 % (0-1); EOSINOPHILS # (AUTO) 0.12 x10^3/uL (0-0.4); EOSINOPHILS % (AUTO) 1 % (1-7); LYMPHOCYTES # (AUTO) 2.16 x10^3/uL (1-3.4); LYMPHOCYTES % (AUTO) 26 % (22-44); MD NO; MEAN CORPUSCULAR HEMOGLOBIN 33.5 pg (27.5-34.5); MEAN CORPUSCULAR HGB CONC 34.2 g/dL (33.2-36.2); MEAN CORPUSCULAR VOLUME 97.8 fL (81-97); MEAN PLATELET VOLUME 7.7 fL (7.4-10.4); MONOCYTES # (AUTO) 0.76 x10^3/uL (0.2-0.8); MONOCYTES % (AUTO) 9 % (2-9); NEUTROPHILS # (AUTO) 5.09 x10^3/uL (1.8-6.8); NEUTROPHILS % (AUTO) 62 % (42-75); PLATELET COUNT 346 x10^3/uL (130-400); RED BLOOD COUNT 5.12 x10^6/uL (4.38-5.82); RED CELL DISTRIBUTION WIDTH 14.1 % (9.4-14.8)
[2020-02-08] MEDS ORDERED: ASPIRIN 81 MG TABLET CHEW ONE (17:26)
[2020-02-08 17:30] LABS: ALANINE AMINOTRANSFERASE 42 U/L (12-78); ALBUMIN 3.7 g/dL (3.4-5.0); ANION GAP 11 mmol/L (5-15); CALCIUM 8.5 mg/dL (8.5-10.1); CHLORIDE 108 mmol/L (98-107)
[2020-02-08 17:35] LABS: ALKALINE PHOSPHATASE 108 U/L (45-117); BILIRUBIN,TOTAL 1.7 mg/dL (0.2-1.0); CREATININE 1.06 mg/dL (0.7-1.3); TOTAL PROTEIN 7.1 g/dL (6.4-8.2); TROPONIN I < 0.015 ng/mL (0.000-0.045)
[2020-02-08] MEDS ORDERED: POTASSIUM CHLORIDE 20 MEQ TAB.ER.PRT PO ONE (18:00)
[2020-02-08] MEDS ORDERED: HYDROcodone/APAP 5/325 TABLET PO ONE (18:00)
[2020-02-08] MEDS ORDERED: SODIUM CHLORIDE 0.9% 1,000ML IVBOLUS ONE (18:00)
[2020-02-08] MEDS ORDERED: ASPIRIN 81 MG TABLET CHEW PO ONE (18:00)
[2020-02-08] MEDS ORDERED: POTASSIUM CHLORIDE 20 MEQ TAB.ER.PRT ONE (18:00)
[2020-02-08] MEDS ORDERED: SODIUM CHLORIDE FLUSH 10ML SYR IVF ONE (18:00)
[2020-02-08] MEDS ORDERED: HYDROcodone/APAP 5/325 TABLET ONE (18:14)
== END 2020-02-08 18:32 | disposition home or self-care (01) ==
LOC: ED 17:15
DX: R07.89 Other chest pain (principal); R06.00 Dyspnea, unspecified; I45.10 Unspecified right bundle-branch block; I25.2 Old myocardial infarction; I10 Essential (primary) hypertension; I25.10 Atherosclerotic heart disease of native coronary artery without angina pectoris; E78.5 Hyperlipidemia, unspecified; F17.200 Nicotine dependence, unspecified, uncomplicated; Z90.81 Acquired absence of spleen; Z90.49 Acquired absence of other specified parts of digestive tract; Z95.9 Presence of cardiac and vascular implant and graft, unspecified; Z90.89 Acquired absence of other organs
CPT/HCPCS: 36415; 71045; 80053; 84484; 85025; 93005; 99285; J7030

== ENCOUNTER 2020-02-24 03:05 | Emergency (ER) | payer MEDICAID ==
[~2020-02-24] VITALS: Ht 177.8 cm; Wt 80.0 kg
[2020-02-24] MEDS ORDERED: MORPHINE SULFATE 4 MG/ML, 1ML ONE (03:30)
[2020-02-24] MEDS ORDERED: MORPHINE SULFATE 4 MG/ML, 1ML IVPush PRN (03:30)
[2020-02-24] MEDS ORDERED: ONDANSETRON 2MG/ML, 2ML ONE (03:30)
[2020-02-24] MEDS ORDERED: ONDANSETRON 2MG/ML, 2ML IVPush ONE (03:30)
[2020-02-24 03:45] LABS: BASOPHILS # (AUTO) 0.07 x10^3/uL (0-0.1); BASOPHILS % (AUTO) 1 % (0-1); EOSINOPHILS # (AUTO) 0.05 x10^3/uL (0-0.4); EOSINOPHILS % (AUTO) 1 % (1-7); LYMPHOCYTES % (AUTO) 41 % (22-44); MD NO; MEAN CORPUSCULAR HEMOGLOBIN 33.6 pg (27.5-34.5); MEAN CORPUSCULAR HGB CONC 33.5 g/dL (33.2-36.2); MEAN PLATELET VOLUME 7.4 fL (7.4-10.4); MONOCYTES # (AUTO) 0.98 x10^3/uL (0.2-0.8); MONOCYTES % (AUTO) 12 % (2-9); NEUTROPHILS # (AUTO) 3.94 x10^3/uL (1.8-6.8); NEUTROPHILS % (AUTO) 46 % (42-75); PLATELET COUNT 372 x10^3/uL (130-400); RED BLOOD COUNT 4.99 x10^6/uL (4.38-5.82); RED CELL DISTRIBUTION WIDTH 14.2 % (9.4-14.8)
[2020-02-24 03:57] LABS: ALANINE AMINOTRANSFERASE 84 U/L (12-78); ALBUMIN 3.4 g/dL (3.4-5.0); ANION GAP 13 mmol/L (5-15); CALCIUM 8.6 mg/dL (8.5-10.1); CHLORIDE 102 mmol/L (98-107)
[2020-02-24 03:59] LABS: ALKALINE PHOSPHATASE 133 U/L (45-117); BILIRUBIN,TOTAL 0.5 mg/dL (0.2-1.0)
--- NOTE | 2020-02-24 04:02 | NUR ---
Pt to ct.
[2020-02-24 04:11] LABS: TROPONIN I < 0.015 ng/mL (0.000-0.045)
--- NOTE | 2020-02-24 04:41 | NUR ---
Pt states not able to produce ua at this time.
--- NOTE | 2020-02-24 05:02 | NUR ---
Pt report to Willie muñoz.
[2020-02-24] MEDS ORDERED: METHOCARBAMOL 750 MG TABLET ONE (05:24)
[2020-02-24] MEDS ORDERED: KETOROLAC 30 MG/1 ML ONE (05:25)
[2020-02-24] MEDS ORDERED: METHOCARBAMOL 750 MG TABLET PO ONE (05:30)
[2020-02-24] MEDS ORDERED: KETOROLAC 30 MG/1 ML IVPush ONE (05:30)
[2020-02-24] MEDS ORDERED: OXYcodone/APAP 5/325MG TABLET PO ONE (06:00)
[2020-02-24 06:27] LABS: MICROSCOPIC AUTO
[2020-02-24] MEDS ORDERED: OXYcodone/APAP 5/325MG TABLET ONE (06:37)
[2020-02-24 06:48] VITALS: BP 132/74
== END 2020-02-24 06:50 | disposition home or self-care (01) ==
LOC: ED 03:50
DX: S39.012A Strain of muscle, fascia and tendon of lower back, initial encounter (principal); N28.1 Cyst of kidney, acquired; I21.9 Acute myocardial infarction, unspecified; I45.10 Unspecified right bundle-branch block; R94.31 Abnormal electrocardiogram [ECG] [EKG]; F17.200 Nicotine dependence, unspecified, uncomplicated; I48.91 Unspecified atrial fibrillation; I25.10 Atherosclerotic heart disease of native coronary artery without angina pectoris; E78.5 Hyperlipidemia, unspecified; J44.9 Chronic obstructive pulmonary disease, unspecified; Z90.49 Acquired absence of other specified parts of digestive tract; Z95.9 Presence of cardiac and vascular implant and graft, unspecified; Z90.81 Acquired absence of spleen; X58.XXXA Exposure to other specified factors, initial encounter; Y93.89 Activity, other specified; Y92.89 Other specified places as the place of occurrence of the external cause; Y99.8 Other external cause status
CPT/HCPCS: 36415; 74176; 80053; 81001; 83690; 84484; 85025; 93005; 96374; 96375; 99285; J1885; J2270; J2405

== ENCOUNTER 2020-06-23 18:31 | Inpatient (IN) | payer MEDICAID ==
[~2020-06-23] VITALS: Ht 177.8 cm; Wt 79.0 kg
--- NOTE | 2020-06-23 18:54 | NUR ---
PT BIB AMBULANCE AFTER TAKING 10-15 OF METOPROLOL. PT STATES HE HAS BEEN FEELING DOWN AFTER LOSING HIS JOB PT HAS A HX OF ATTEMPTING SUICIDE A FEW YEARS AGO. EMS STARTED 20 GA IV LAC.
--- NOTE | 2020-06-23 19:19 | NUR ---
REPORT FROM ERASMO VEGA. PTS BELONGINGS REMOVED AND 2 BAGS SECURED. PT PLACED ON TILE PROFESSIONAL. PT HAS NO NEEDS AT THIS TIME. CALL LIGHT IN REACH
[2020-06-23] MEDS ORDERED: CHARCOAL/AQUEOUS 25 GM/120 ML PO ONE (20:00)
[2020-06-23] MEDS ORDERED: SODIUM CHLORIDE 0.9% 1,000 ML IV ONE ×3 (20:00→21:30)
[2020-06-23] MEDS ORDERED: CHARCOAL/SORBITOL 50 GM/240 ML ONE (20:10)
[2020-06-23 20:18] LABS: ALANINE AMINOTRANSFERASE 26 U/L (12-78); ALBUMIN 3.5 g/dL (3.4-5.0); ANION GAP 6 mmol/L (5-15); BASOPHILS % (AUTO) 2 % (0-1); CALCIUM 8.6 mg/dL (8.5-10.1); CHLORIDE 108 mmol/L (98-107); EOSINOPHILS % (AUTO) 1 % (1-7); LYMPHOCYTES % (AUTO) 31 % (22-44); MEAN CORPUSCULAR HEMOGLOBIN 35.4 pg (27.5-34.5); MEAN CORPUSCULAR HGB CONC 35.1 g/dL (33.2-36.2); MEAN PLATELET VOLUME 7.8 fL (7.4-10.4); MONOCYTES % (AUTO) 10 % (2-9); NEUTROPHILS % (AUTO) 57 % (42-75); PLATELET COUNT 297 x10^3/uL (130-400); RED BLOOD COUNT 4.76 x10^6/uL (4.38-5.82); RED CELL DISTRIBUTION WIDTH 15.7 % (9.4-14.8); SALICYLATE LEVEL 2.4 mg/dL (2.8-20.0)
[2020-06-23 20:19] LABS: MD NO
[2020-06-23 20:22] LABS: ALKALINE PHOSPHATASE 110 U/L (45-117); BILIRUBIN,TOTAL 0.6 mg/dL (0.2-1.0); TOTAL PROTEIN 6.8 g/dL (6.4-8.2)
[2020-06-23] MEDS ORDERED: SODIUM CHLORIDE 0.9% 1,000ML IVBOLUS ONE (20:30)
--- NOTE | 2020-06-23 20:40 | NUR ---
UA SENT TO BATHROOM. PT GIVEN CHARCOAL AND HAS FLUIDS RUNNING. PT HAS NO OTHE RNEEDS AT THIS TIME. CALL LIGHT IN REACH
[2020-06-23 21:06] LABS: MICROSCOPIC NOT IND
[2020-06-23 21:19] LABS: AMPHETAMINE SCREEN, URINE Negative (Negative); BARBITURATE SCREEN, URINE Negative (Negative); BENZODIAZEPINE SCREEN, URINE Negative (Negative); CANNABINOID SCREEN, URINE Positive (Negative); COCAINE SCREEN, URINE Negative (Negative); METHADONE SCREEN, URINE Negative (Negative); OPIATE SCREEN, URINE Negative (Negative)
[2020-06-23] MEDS ORDERED: SODIUM CHLORIDE FLUSH 10ML SYR IVF PRN (21:30)
[2020-06-23] MEDS ORDERED: NS + 20MEQ KCL 1,000 ML IV SCH (21:30)
[2020-06-23] MEDS ORDERED: MAGNESIUM SULFATE PMX 2GM/50ML 50 ML IV ONE (21:30)
[2020-06-23] MEDS ORDERED: POLYETHYLENE GLYCOL 17 GM PACKET PO PRN (21:30)
[2020-06-23] MEDS ORDERED: ONDANSETRON ODT 4 MG PO PRN (21:30)
[2020-06-23] MEDS ORDERED: BISACODYL 10 MG SUPP PR PRN (21:30)
[2020-06-24] MEDS: TAMSULOSIN 0.4 MG CAP.ER.24H PO SCH ×2 (00:15→20:25)
[2020-06-24 01:07] VITALS: BP 120/72
[2020-06-24] MEDS ORDERED: LORazepam 0.5MG TABLET PO PRN (03:00)
[2020-06-24 05:52] LABS: ANION GAP 7 mmol/L (5-15); CALCIUM 8.6 mg/dL (8.5-10.1); CHLORIDE 112 mmol/L (98-107)
[2020-06-24 05:53] LABS: CREATININE 1.07 mg/dL (0.7-1.3)
[2020-06-24 06:30] VITALS: BP 128/75
[2020-06-24] MEDS ORDERED: HYDROXYZINE PAMOATE 50MG CAP PO PRN (09:00)
[2020-06-24] MEDS: OMEGA-3/FISH OIL CAPSULE PO SCH (09:00)
[2020-06-24] MEDS: SENNA/DOCUSATE TABLET PO SCH (09:00)
[2020-06-24] MEDS: PRASUGREL 10 MG TABLET PO SCH (10:09)
[2020-06-24] MEDS: MULTIVITAMIN 1 TABLET PO SCH (10:09)
[2020-06-24] MEDS: ASPIRIN 81 MG TABLET EC PO SCH (10:10)
[2020-06-24] MEDS: HYDROXYZINE PAMOATE 25MG CAP PO PRN ×2 (10:10→20:25)
[2020-06-24 13:07] VITALS: BP 165/95
[2020-06-24] MEDS ORDERED: LISINOPRIL 10 MG TABLET PO SCH (14:00)
[2020-06-24] MEDS ORDERED: ALBUTEROL HFA 90 MCG/SPRAY INH PRN (14:30)
[2020-06-24 15:01] LABS: FREE T4 (FREE THYROXINE) 1.2 ng/dL (0.76-1.46)
[2020-06-24] MEDS ORDERED: LOSA25TA25 PO (15:12)
[2020-06-24 19:17] VITALS: BP 123/86
[2020-06-25 01:21] VITALS: BP 137/84
[2020-06-25] MEDS: HYDROXYZINE PAMOATE 25MG CAP PO PRN ×3 (06:37→22:26)
[2020-06-25 07:10] VITALS: BP 124/85
[2020-06-25] MEDS: ASPIRIN 81 MG TABLET EC PO SCH (08:22)
[2020-06-25] MEDS: OMEGA-3/FISH OIL CAPSULE PO SCH (08:23)
[2020-06-25] MEDS: PRASUGREL 10 MG TABLET PO SCH (08:23)
[2020-06-25] MEDS: MULTIVITAMIN 1 TABLET PO SCH (08:23)
[2020-06-25] MEDS: LOSARTAN 25MG TABLET PO SCH (08:23)
[2020-06-25] MEDS: SENNA/DOCUSATE TABLET PO SCH (08:23)
[2020-06-25 12:41] VITALS: BP 128/82
[2020-06-25 19:26] VITALS: BP 127/80
[2020-06-25] MEDS: TAMSULOSIN 0.4 MG CAP.ER.24H PO SCH (21:06)
[2020-06-26 01:48] VITALS: BP 150/90
[2020-06-26 06:59] VITALS: BP 131/88
[2020-06-26] MEDS: LOSARTAN 25MG TABLET PO SCH (09:00)
[2020-06-26] MEDS: MULTIVITAMIN 1 TABLET PO SCH (09:00)
[2020-06-26] MEDS: PRASUGREL 10 MG TABLET PO SCH (09:00)
[2020-06-26] MEDS: OMEGA-3/FISH OIL CAPSULE PO SCH (09:00)
[2020-06-26] MEDS: SENNA/DOCUSATE TABLET PO SCH (09:00)
[2020-06-26] MEDS: ASPIRIN 81 MG TABLET EC PO SCH (10:07)
[2020-06-26] MEDS ORDERED: HYDR25CA94 PO (13:04)
[2020-06-26] MEDS ORDERED: TRAM50TA2 PO (13:04)
[2020-06-26] MEDS ORDERED: ALBU18HF INH (13:04)
[2020-06-26] MEDS ORDERED: ATOR40TA78 PO (13:05)
[2020-06-26 13:37] VITALS: BP 131/79
== END 2020-06-26 14:00 | DRG 918 ==
LOC: ED 20:52 → EDIP 21:23 → 5SO 23:34
PROVIDERS: ADMIT Internal Medicine; ATTEND Hospitalist
DX: T44.7X2A Poisoning by beta-adrenoreceptor antagonists, intentional self-harm, initial encounter (principal); E78.5 Hyperlipidemia, unspecified; E83.42 Hypomagnesemia; E87.6 Hypokalemia; F17.210 Nicotine dependence, cigarettes, uncomplicated; F31.9 Bipolar disorder, unspecified; F43.10 Post-traumatic stress disorder, unspecified; I25.10 Atherosclerotic heart disease of native coronary artery without angina pectoris; I25.2 Old myocardial infarction; I44.0 Atrioventricular block, first degree; I48.0 Paroxysmal atrial fibrillation; I10 Essential (primary) hypertension; J44.9 Chronic obstructive pulmonary disease, unspecified; D75.89 Other specified diseases of blood and blood-forming organs; Z20.828 Contact with and (suspected) exposure to other viral communicable diseases; Y92.89 Other specified places as the place of occurrence of the external cause; Z80.1 Family history of malignant neoplasm of trachea, bronchus and lung; Z82.49 Family history of ischemic heart disease and other diseases of the circulatory system; Z85.828 Personal history of other malignant neoplasm of skin; Z90.81 Acquired absence of spleen; Z91.5 Personal history of self-harm; Z95.5 Presence of coronary angioplasty implant and graft; Z88.8 Allergy status to other drugs, medicaments and biological substances; Z88.0 Allergy status to penicillin
CPT/HCPCS: 36415; 71045; 80048; 80053; 80299; 80307; 80320; 80329; 81003; 82607; 83735; 84439; 84443; 85025; 87635; 93005; G0378; J3480; G0480; J3475; J7030

== ENCOUNTER 2020-06-26 13:36 | Inpatient (IN) | payer MEDICAID ==
[~2020-06-26] VITALS: Ht 177.8 cm; Wt 74.1 kg
[~2020-06-26 13:36] MED LIST changes: +ATOR40TA78 PO; +HYDR25CA94 PO
[2020-06-26 13:50] VITALS: BP_SYST 121; BP_SYST 143; BP_DIAS 78; BP_DIAS 94
[2020-06-26] MEDS ORDERED: POLYETHYLENE GLYCOL 17 GM PACKET PO PRN (14:00)
[2020-06-26] MEDS ORDERED: DOCUSATE 100 MG CAPSULE PO PRN (14:00)
[2020-06-26] MEDS ORDERED: BISACODYL 10 MG SUPP PR PRN (14:00)
[2020-06-26] MEDS ORDERED: ACETAMINOPHEN 325 MG TABLET PO PRN (14:00)
[2020-06-26] MEDS ORDERED: ALBUTEROL HFA 90 MCG/SPRAY INH PRN (14:00)
[2020-06-26] MEDS ORDERED: ONDANSETRON ODT 4 MG PO PRN (14:00)
[2020-06-26 14:07] VITALS: BP 143/94
[2020-06-26] MEDS ORDERED: PLEASE ENTER HEIGHT AND WEIGHT MC SCH (14:30)
[2020-06-26] MEDS ORDERED: FLU VACC QS2020-21(6MOS UP)/PF 60MCG/0.5 ML SYR IM-VACC ONE (16:00)
[2020-06-26] MEDS: HYDROXYZINE PAMOATE 50MG CAP PO PRN (16:10)
[2020-06-26 19:39] VITALS: BP 125/83
[2020-06-26] MEDS: TAMSULOSIN 0.4 MG CAP.ER.24H PO SCH (20:24)
[2020-06-26] MEDS: ATORVASTATIN 40 MG TABLET PO SCH (20:24)
[2020-06-27] MEDS: HYDROXYZINE PAMOATE 50MG CAP PO PRN ×3 (03:54→20:02)
[2020-06-27] MEDS: ASPIRIN 81 MG TABLET EC PO SCH (05:36)
[2020-06-27 06:28] LABS: CHOL/HDL RATIO 4.4; FREE T4 (FREE THYROXINE) 1.23 ng/dL (0.76-1.46); LDL/HDL RATIO 2.8 (0.5-3.0)
[2020-06-27 07:23] VITALS: BP 113/75
[2020-06-27] MEDS: MULTIVITAMIN 1 TABLET PO SCH (08:20)
[2020-06-27] MEDS: LOSARTAN 25MG TABLET PO SCH (08:21)
[2020-06-27] MEDS: PRASUGREL 10 MG TABLET PO SCH (08:21)
[2020-06-27] MEDS: NICOTINE 14MG/24 HR PATCH.TD24 TD SCH (08:23)
[2020-06-27] MEDS: OMEGA-3/FISH OIL CAPSULE PO SCH (08:33)
[2020-06-27 20:00] VITALS: BP 101/71
[2020-06-27] MEDS: ATORVASTATIN 40 MG TABLET PO SCH (20:02)
[2020-06-27] MEDS: MELATONIN 5 MG TABLET PO SCH (20:02)
[2020-06-27] MEDS: TAMSULOSIN 0.4 MG CAP.ER.24H PO SCH (20:02)
[2020-06-28] MEDS: ASPIRIN 81 MG TABLET EC PO SCH (05:25)
[2020-06-28 07:23] VITALS: BP 110/75
[2020-06-28] MEDS: NICOTINE 14MG/24 HR PATCH.TD24 TD SCH (08:44)
[2020-06-28] MEDS: MULTIVITAMIN 1 TABLET PO SCH (08:45)
[2020-06-28] MEDS: PRASUGREL 10 MG TABLET PO SCH (08:45)
[2020-06-28] MEDS: LOSARTAN 25MG TABLET PO SCH (08:46)
[2020-06-28] MEDS: OMEGA-3/FISH OIL CAPSULE PO SCH (08:50)
[2020-06-28] MEDS: HYDROXYZINE PAMOATE 50MG CAP PO PRN ×3 (08:56→20:42)
[2020-06-28 20:00] VITALS: BP 121/76
[2020-06-28] MEDS: ATORVASTATIN 40 MG TABLET PO SCH (20:42)
[2020-06-28] MEDS: TAMSULOSIN 0.4 MG CAP.ER.24H PO SCH (20:42)
[2020-06-28] MEDS: MELATONIN 5 MG TABLET PO SCH (21:00)
[2020-06-29] MEDS: LEVOTHYROXINE 50 MCG TABLET PO SCH (05:58)
[2020-06-29] MEDS: ASPIRIN 81 MG TABLET EC PO SCH (05:58)
[2020-06-29 07:27] VITALS: BP 123/79
[2020-06-29] MEDS: PRASUGREL 10 MG TABLET PO SCH (08:02)
[2020-06-29] MEDS: MULTIVITAMIN 1 TABLET PO SCH (08:02)
[2020-06-29] MEDS: OMEGA-3/FISH OIL CAPSULE PO SCH ×2 (08:02→08:09)
[2020-06-29] MEDS: LOSARTAN 25MG TABLET PO SCH (08:03)
[2020-06-29] MEDS: NICOTINE 14MG/24 HR PATCH.TD24 TD SCH (08:06)
[2020-06-29] MEDS: HYDROXYZINE PAMOATE 50MG CAP PO PRN ×2 (12:16→20:33)
[2020-06-29 19:53] VITALS: BP 113/80
[2020-06-29] MEDS: TAMSULOSIN 0.4 MG CAP.ER.24H PO SCH (20:34)
[2020-06-29] MEDS: MELATONIN 5 MG TABLET PO SCH (20:34)
[2020-06-29] MEDS: ATORVASTATIN 40 MG TABLET PO SCH (20:34)
[2020-06-30] MEDS: ASPIRIN 81 MG TABLET EC PO SCH (06:02)
[2020-06-30] MEDS: LEVOTHYROXINE 50 MCG TABLET PO SCH (06:02)
[2020-06-30 07:22] VITALS: BP 116/80
[2020-06-30] MEDS: OMEGA-3/FISH OIL CAPSULE PO SCH ×2 (09:00→09:21)
[2020-06-30] MEDS: NICOTINE 14MG/24 HR PATCH.TD24 TD SCH (09:21)
[2020-06-30] MEDS: PRASUGREL 10 MG TABLET PO SCH (09:21)
[2020-06-30] MEDS: LOSARTAN 25MG TABLET PO SCH (09:22)
[2020-06-30] MEDS: MULTIVITAMIN 1 TABLET PO SCH (09:22)
[2020-06-30] MEDS: HYDROXYZINE PAMOATE 50MG CAP PO PRN ×2 (09:23→20:10)
[2020-06-30] MEDS ORDERED: MELA5TAB14 PO (12:44)
[2020-06-30 19:59] VITALS: BP 109/73
[2020-06-30] MEDS: MELATONIN 5 MG TABLET PO SCH (20:10)
[2020-06-30] MEDS: ATORVASTATIN 40 MG TABLET PO SCH (20:11)
[2020-06-30] MEDS: TAMSULOSIN 0.4 MG CAP.ER.24H PO SCH (20:11)
[2020-07-01] MEDS: LEVOTHYROXINE 50 MCG TABLET PO SCH (06:30)
[2020-07-01] MEDS: ASPIRIN 81 MG TABLET EC PO SCH (06:30)
[2020-07-01 07:00] VITALS: BP 146/80
[2020-07-01 07:15] VITALS: BP 108/75
[2020-07-01] MEDS: HYDROXYZINE PAMOATE 50MG CAP PO PRN (08:23)
[2020-07-01] MEDS: NICOTINE 14MG/24 HR PATCH.TD24 TD SCH (09:00)
[2020-07-01] MEDS: LOSARTAN 25MG TABLET PO SCH (09:01)
[2020-07-01] MEDS: MULTIVITAMIN 1 TABLET PO SCH (09:01)
[2020-07-01] MEDS: PRASUGREL 10 MG TABLET PO SCH (09:02)
== END 2020-07-01 10:06 | disposition home or self-care (01) | DRG 885 ==
LOC: 3E 13:36
PROVIDERS: ADMIT Psychiatry & Neurology Psychosomatic Medicine; ATTEND Psychiatry & Neurology Psychosomatic Medicine
DX: F33.2 Major depressive disorder, recurrent severe without psychotic features (principal); R45.851 Suicidal ideations; D75.89 Other specified diseases of blood and blood-forming organs; E78.5 Hyperlipidemia, unspecified; F17.210 Nicotine dependence, cigarettes, uncomplicated; F41.1 Generalized anxiety disorder; F43.10 Post-traumatic stress disorder, unspecified; G47.00 Insomnia, unspecified; I10 Essential (primary) hypertension; I25.10 Atherosclerotic heart disease of native coronary artery without angina pectoris; I48.0 Paroxysmal atrial fibrillation; J44.9 Chronic obstructive pulmonary disease, unspecified; R33.9 Retention of urine, unspecified; Z79.82 Long term (current) use of aspirin; Z80.1 Family history of malignant neoplasm of trachea, bronchus and lung; Z82.49 Family history of ischemic heart disease and other diseases of the circulatory system; Z85.828 Personal history of other malignant neoplasm of skin; Z90.81 Acquired absence of spleen; Z88.0 Allergy status to penicillin; Z90.49 Acquired absence of other specified parts of digestive tract; Z95.5 Presence of coronary angioplasty implant and graft; Z23 Encounter for immunization
CPT/HCPCS: 36415; 80061; 84439; 84443; 90686

== ENCOUNTER 2021-01-31 13:35 | Emergency (ER) | payer MEDICAID ==
[~2021-01-31] VITALS: Ht 177.8 cm; Wt 74.3 kg
[~2021-01-31 13:35] MED LIST changes: +ASPI-1026 PO; -ASPI-650 PO; -FOLI-17 PO; +FOLI1TAB32 PO; +HYDR-2214 PO; -HYDR-3240 PO; -HYDR-3246 PO; +HYDR-3248 PO; +MELA5TAB14 PO; -OXYC5TAB3 PO; +OXYC5TAB98 PO
--- NOTE | 2021-01-31 14:10 | NUR ---
EKG DONE IN TRIAGE.
--- NOTE | 2021-01-31 14:50 | NUR ---
WOULD LIKE TO SPEAK TO A MENTAL HEALTH PROVIDER
[2021-01-31] MEDS ORDERED: LORazepam 2 MG/ML, 1ML ONE (15:27)
[2021-01-31] MEDS ORDERED: LORazepam 2 MG/ML, 1ML IVPush ONE (15:30)
[2021-01-31] MEDS ORDERED: SODIUM CHLORIDE 0.9% 1,000 ML IV SCH (15:30)
[2021-01-31 15:58] LABS: ALANINE AMINOTRANSFERASE 30 U/L (12-78); ALBUMIN 3.7 g/dL (3.4-5.0); ANION GAP 7 mmol/L (5-15); CALCIUM 8.5 mg/dL (8.5-10.1); CHLORIDE 111 mmol/L (98-107); CREATININE 0.87 mg/dL (0.7-1.3)
[2021-01-31 16:00] LABS: ALKALINE PHOSPHATASE 106 U/L (45-117); BILIRUBIN,TOTAL 1.6 mg/dL (0.2-1.0); TOTAL PROTEIN 7.2 g/dL (6.4-8.2)
[2021-01-31 16:24] LABS: MICROSCOPIC INDICATED
[2021-01-31 16:24] LABS: BASOPHILS % (AUTO) 1 % (0-1); EOSINOPHILS % (AUTO) 1 % (1-7); LYMPHOCYTES % (AUTO) 35 % (22-44); MEAN CORPUSCULAR HEMOGLOBIN 35.3 pg (27.5-34.5); MEAN CORPUSCULAR HGB CONC 35.6 g/dL (33.2-36.2); MEAN PLATELET VOLUME 8.5 fL (7.4-10.4); MONOCYTES % (AUTO) 12 % (2-9); NEUTROPHILS % (AUTO) 51 % (42-75); PLATELET COUNT 284 x10^3/uL (130-400); RED BLOOD COUNT 4.89 x10^6/uL (4.38-5.82); RED CELL DISTRIBUTION WIDTH 14.9 % (9.4-14.8)
[2021-01-31 16:28] LABS: AMPHETAMINE SCREEN, URINE Negative (Negative); BARBITURATE SCREEN, URINE Negative (Negative); BENZODIAZEPINE SCREEN, URINE Positive (Negative); CANNABINOID SCREEN, URINE Positive (Negative); COCAINE SCREEN, URINE Negative (Negative); METHADONE SCREEN, URINE Negative (Negative); OPIATE SCREEN, URINE Negative (Negative)
[2021-01-31] MEDS ORDERED: POTASSIUM CHLORIDE 20 MEQ TAB.ER.PRT PO ONE (16:30)
[2021-01-31] MEDS ORDERED: POTASSIUM CHLORIDE 20 MEQ TAB.ER.PRT ONE (16:31)
[2021-01-31 18:10] VITALS: BP 133/81
== END 2021-01-31 18:13 | disposition home or self-care (01) ==
LOC: ED 14:05
DX: F41.1 Generalized anxiety disorder (principal); F32.9 Major depressive disorder, single episode, unspecified; R42 Dizziness and giddiness; R94.31 Abnormal electrocardiogram [ECG] [EKG]; R19.7 Diarrhea, unspecified; R51.9 Headache, unspecified; I10 Essential (primary) hypertension
CPT/HCPCS: 36415; 70450; 80053; 80307; 81001; 84425; 85025; 87086; 93005; 96361; 96374; 99285; J2060; J7030

== ENCOUNTER 2021-02-01 06:30 | Emergency (ER) | payer MEDICAID ==
[~2021-02-01] VITALS: Ht 177.8 cm; Wt 72.0 kg
[2021-02-01 06:43] VITALS: BP 131/87
[2021-02-01] MEDS ORDERED: LORazepam 1MG TABLET PO ONE (07:30)
[2021-02-01] MEDS ORDERED: THIAMINE 100MG TABLET PO ONE (07:30)
--- NOTE | 2021-02-01 07:30 | NUR ---
ROOM SECURED, PT'S BELONGINGS INTO BAGX1 AND PLACED IN LOCKER. PT STATES NOT SUICIDAL TODAY, VOLUNTEERING TO COME IN AND GET HELP AFTER SPEAKING WITH THERAPIST. PT STATES LONG HX OF ALCOHOLISM WITH RELAPSES AND DETOX. MOST RECENTLY A COUPLE DAYS AGO AFTER "SELF MEDICATING WITH ALCOHOL". 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 PT SAYS HE CAME DOWN TO [place] TO GET DETOX AND HAS STAYED HERE. PT DENIES AH, VH, SI AT THIS TIME. PT STATES HE "CAN'T GET MY HEAD CLEAR", REPORTS FOGGINESS, DISORIENTATION, AND POOR MEMORY. HAS BEEN SEEN HERE YESTERDAY AND AT [place] WITH CT HEAD AT BOTH PLACES, BOTH RESULTS NEGATIVE. SITTER AT DOORWAY FOR CLOSE OBS. PT UPDATED ON POC.
[2021-02-01] MEDS ORDERED: THIAMINE 100MG TABLET ONE (07:43)
[2021-02-01] MEDS ORDERED: LORazepam 1MG TABLET ONE (07:43)
--- NOTE | 2021-02-01 07:48 | NUR ---
PT MEDICATED PER ERP ORDER.
[2021-02-01 08:12] LABS: ALANINE AMINOTRANSFERASE 25 U/L (12-78); ALBUMIN 3.5 g/dL (3.4-5.0); ANION GAP 5 mmol/L (5-15); CALCIUM 8.4 mg/dL (8.5-10.1); CHLORIDE 110 mmol/L (98-107); CREATININE 0.86 mg/dL (0.7-1.3)
[2021-02-01 08:14] LABS: ALKALINE PHOSPHATASE 87 U/L (45-117); BILIRUBIN,TOTAL 0.9 mg/dL (0.2-1.0); TOTAL PROTEIN 6.6 g/dL (6.4-8.2)
[2021-02-01 08:23] LABS: BASOPHILS % (AUTO) 1 % (0-1); EOSINOPHILS % (AUTO) 1 % (1-7); LYMPHOCYTES % (AUTO) 22 % (22-44); MEAN CORPUSCULAR HEMOGLOBIN 35.2 pg (27.5-34.5); MEAN PLATELET VOLUME 7.8 fL (7.4-10.4); MONOCYTES % (AUTO) 10 % (2-9); NEUTROPHILS % (AUTO) 65 % (42-75); PLATELET COUNT 280 x10^3/uL (130-400); RED BLOOD COUNT 4.54 x10^6/uL (4.38-5.82); RED CELL DISTRIBUTION WIDTH 14.6 % (9.4-14.8)
[2021-02-01] MEDS ORDERED: ACETAMINOPHEN 325 MG TABLET ONE (08:27)
--- NOTE | 2021-02-01 08:33 | NUR ---
PT GIVEN MEAL TRAY AND TYLENOL FOR MONTEJO PAIN RATED 5/10. URINE COLLECTED/WALKED TO LAB. SITTER AT DOORWAY.
[2021-02-01 08:51] LABS: AMPHETAMINE SCREEN, URINE Negative (Negative); BARBITURATE SCREEN, URINE Negative (Negative); BENZODIAZEPINE SCREEN, URINE Negative (Negative); CANNABINOID SCREEN, URINE Positive (Negative); COCAINE SCREEN, URINE Negative (Negative); METHADONE SCREEN, URINE Negative (Negative); OPIATE SCREEN, URINE Negative (Negative)
[2021-02-01] MEDS ORDERED: ACETAMINOPHEN 325 MG TABLET PO ONE (09:00)
--- NOTE | 2021-02-01 09:18 | NUR ---
PT SLEEPING INTERMITTENTLY, STATES MONTEJO BETTER. WARM BLANKET AND PILLOW PROVIDED. SITTER AT DOORWAY.
--- NOTE | 2021-02-01 10:30 | NUR ---
CANDI WHITTAKER IN TO SEE PT.
--- NOTE | 2021-02-01 11:26 | NUR ---
PT ON LEGAL HOLD. SLEEPING INTERMITTENTLY, SITTER AT DOORWAY. LUNCH TRAY ORDERED.
--- NOTE | 2021-02-01 12:13 | NUR ---
ED MEAL TRAY PROVIDED.
--- NOTE | 2021-02-01 13:17 | NUR ---
TASK RN: COVID SWAB OBTAINED AND WALKED TO LAB.
--- NOTE | 2021-02-01 14:12 | NUR ---
PT SLEEPING INTERMITTENTLY. AWAITING COVID RESULTS THEN U. SITTER AT DOORWAY.
--- NOTE | 2021-02-01 16:12 | NUR ---
REPORT TO ALDO MARIO READY FOR TRANSPORT TO FLOOR.
[2021-02-02] MEDS ORDERED: SERTRALINE 50MG TABLET PO SCH (09:00)
== END 2021-02-01 19:00 | disposition home or self-care (01) ==
LOC: ED 08:52
DX: F10.159 Alcohol abuse with alcohol-induced psychotic disorder, unspecified (principal); Z20.822 Contact with and (suspected) exposure to COVID-19; F32.9 Major depressive disorder, single episode, unspecified; R45.1 Restlessness and agitation; Y90.0 Blood alcohol level of less than 20 mg/100 ml; I25.10 Atherosclerotic heart disease of native coronary artery without angina pectoris; I48.91 Unspecified atrial fibrillation; I25.2 Old myocardial infarction; I10 Essential (primary) hypertension; E78.5 Hyperlipidemia, unspecified; Z90.89 Acquired absence of other organs; Z90.49 Acquired absence of other specified parts of digestive tract; Z98.61 Coronary angioplasty status; Z88.0 Allergy status to penicillin; Z88.8 Allergy status to other drugs, medicaments and biological substances
CPT/HCPCS: 36415; 80053; 80299; 80307; 80320; 80329; 85025; 87426; 99285; G0480

== ENCOUNTER 2021-02-01 13:46 | Inpatient (IN) | payer MEDICAID ==
[~2021-02-01] VITALS: Ht 177.8 cm; Wt 73.3 kg
[2021-02-01] MEDS ORDERED: DOCUSATE 100 MG CAPSULE PO PRN (15:30)
[2021-02-01] MEDS ORDERED: ONDANSETRON ODT 4 MG PO PRN (15:30)
[2021-02-01] MEDS ORDERED: POLYETHYLENE GLYCOL 17 GM PACKET PO PRN (15:30)
[2021-02-01] MEDS ORDERED: BISACODYL 10 MG SUPP PR PRN (15:30)
[2021-02-01 16:50] VITALS: BP 137/91
[2021-02-01] MEDS ORDERED: PLEASE ENTER WEIGHT MC SCH (17:30)
[2021-02-01] MEDS ORDERED: LORazepam 1MG TABLET PO ONE (18:30)
[2021-02-01 20:02] VITALS: BP 129/77
[2021-02-01] MEDS: QUETIAPINE 25MG TABLET PO PRN (20:22)
[2021-02-02 03:43] LABS: FREE T4 (FREE THYROXINE) 1.09 ng/dL (0.76-1.46)
[2021-02-02 03:54] LABS: CHOL/HDL RATIO 5.4; LDL/HDL RATIO 3.6 (0.5-3.0)
[2021-02-02 07:29] VITALS: BP 127/80
[2021-02-02] MEDS: NICOTINE 14MG/24 HR PATCH.TD24 TD SCH (08:05)
[2021-02-02] MEDS: ACETAMINOPHEN 325 MG TABLET PO PRN ×2 (09:11→20:35)
[2021-02-02] MEDS: QUETIAPINE 25MG TABLET PO PRN ×2 (14:07→20:35)
[2021-02-02 19:10] VITALS: BP 131/83
[2021-02-02] MEDS: TAMSULOSIN 0.4 MG CAP.ER.24H PO SCH (20:35)
[2021-02-02] MEDS: ATORVASTATIN 40 MG TABLET PO SCH (20:35)
[2021-02-02] MEDS: MELATONIN 5 MG TABLET PO PRN (21:10)
[2021-02-03 07:24] VITALS: BP 125/84
[2021-02-03] MEDS: LOSARTAN 25MG TABLET PO SCH (08:56)
[2021-02-03] MEDS: ASPIRIN 81 MG TABLET EC PO SCH (08:56)
[2021-02-03] MEDS: NICOTINE 14MG/24 HR PATCH.TD24 TD SCH (08:57)
[2021-02-03] MEDS: ACETAMINOPHEN 325 MG TABLET PO PRN (15:05)
[2021-02-03 15:38] LABS: MICROSCOPIC NOT IND
[2021-02-03] MEDS: LORazepam 1MG TABLET PO PRN ×2 (16:55→21:54)
[2021-02-03 19:46] VITALS: BP 119/81
[2021-02-03] MEDS: TAMSULOSIN 0.4 MG CAP.ER.24H PO SCH (20:43)
[2021-02-03] MEDS: ATORVASTATIN 40 MG TABLET PO SCH (20:43)
[2021-02-03] MEDS: MELATONIN 5 MG TABLET PO PRN (20:43)
[2021-02-04 07:08] VITALS: BP 109/72
[2021-02-04] MEDS: ASPIRIN 81 MG TABLET EC PO SCH (09:10)
[2021-02-04] MEDS: NICOTINE 14MG/24 HR PATCH.TD24 TD SCH (09:11)
[2021-02-04] MEDS: LOSARTAN 25MG TABLET PO SCH (09:11)
[2021-02-04] MEDS: LORazepam 1MG TABLET PO PRN ×2 (09:19→20:27)
[2021-02-04] MEDS: ACETAMINOPHEN 325 MG TABLET PO PRN (17:25)
[2021-02-04 19:22] VITALS: BP 109/70
[2021-02-04] MEDS: MELATONIN 5 MG TABLET PO PRN (20:27)
[2021-02-04] MEDS: TAMSULOSIN 0.4 MG CAP.ER.24H PO SCH (20:27)
[2021-02-04] MEDS: ATORVASTATIN 40 MG TABLET PO SCH (20:27)
[2021-02-05 07:53] VITALS: BP 107/78
[2021-02-05] MEDS: ACETAMINOPHEN 325 MG TABLET PO PRN (09:48)
[2021-02-05] MEDS: NICOTINE 14MG/24 HR PATCH.TD24 TD SCH (09:48)
[2021-02-05] MEDS: LOSARTAN 25MG TABLET PO SCH (09:48)
[2021-02-05] MEDS: LORazepam 1MG TABLET PO PRN ×2 (09:48→20:15)
[2021-02-05] MEDS: ASPIRIN 81 MG TABLET EC PO SCH (09:48)
[2021-02-05 19:15] VITALS: BP 106/73
[2021-02-05] MEDS: TAMSULOSIN 0.4 MG CAP.ER.24H PO SCH (20:15)
[2021-02-05] MEDS: ATORVASTATIN 40 MG TABLET PO SCH (20:15)
[2021-02-05] MEDS: MELATONIN 5 MG TABLET PO PRN (20:15)
[2021-02-06 07:38] VITALS: BP 119/84
[2021-02-06] MEDS: ASPIRIN 81 MG TABLET EC PO SCH (08:42)
[2021-02-06] MEDS: LOSARTAN 25MG TABLET PO SCH (08:43)
[2021-02-06] MEDS: NICOTINE 14MG/24 HR PATCH.TD24 TD SCH (08:44)
[2021-02-06] MEDS: LORazepam 1MG TABLET PO PRN ×2 (08:47→20:47)
[2021-02-06 19:20] VITALS: BP 101/69
[2021-02-06] MEDS: TAMSULOSIN 0.4 MG CAP.ER.24H PO SCH (20:47)
[2021-02-06] MEDS: ATORVASTATIN 40 MG TABLET PO SCH (20:47)
[2021-02-06] MEDS: MELATONIN 5 MG TABLET PO PRN (20:47)
[2021-02-07 07:10] VITALS: BP 110/74
[2021-02-07] MEDS: NICOTINE 14MG/24 HR PATCH.TD24 TD SCH (08:44)
[2021-02-07] MEDS: ASPIRIN 81 MG TABLET EC PO SCH (08:44)
[2021-02-07] MEDS: LOSARTAN 25MG TABLET PO SCH (08:45)
[2021-02-07] MEDS: SERTRALINE 50MG TABLET PO SCH (08:45)
[2021-02-07] MEDS ORDERED: HYDROXYZINE PAMOATE 50MG CAP ONE (08:55)
[2021-02-07] MEDS ORDERED: HYDROXYZINE PAMOATE 50MG CAP PO ONE (09:00)
[2021-02-07] MEDS ORDERED: LOSA25TA25 PO (12:55)
[2021-02-07] MEDS ORDERED: TAMS-11 PO (12:55)
[2021-02-07] MEDS ORDERED: NICO-486 TD (12:55)
[2021-02-07] MEDS ORDERED: SERT50TA28 PO (12:55)
[2021-02-07] MEDS ORDERED: MELA5TAB14 PO (12:55)
[2021-02-07] MEDS ORDERED: QUET25TA7 PO (12:55)
[2021-02-07] MEDS ORDERED: ATOR40TA78 PO (12:55)
[2021-02-07] MEDS ORDERED: ASPI81TA45 PO (12:55)
[2021-02-07 19:56] VITALS: BP 115/73
[2021-02-07] MEDS: LORazepam 1MG TABLET PO PRN (20:15)
[2021-02-07] MEDS: ATORVASTATIN 40 MG TABLET PO SCH (20:15)
[2021-02-07] MEDS: MELATONIN 5 MG TABLET PO PRN (20:15)
[2021-02-07] MEDS: TAMSULOSIN 0.4 MG CAP.ER.24H PO SCH (20:15)
[2021-02-07] MEDS: LOPERAMIDE 2 MG CAPSULE PO PRN (21:54)
[2021-02-08 07:06] VITALS: BP 145/94
[2021-02-08] MEDS: NICOTINE 14MG/24 HR PATCH.TD24 TD SCH (08:04)
[2021-02-08] MEDS: ASPIRIN 81 MG TABLET EC PO SCH (08:05)
[2021-02-08] MEDS: LOSARTAN 25MG TABLET PO SCH (08:05)
[2021-02-08] MEDS: SERTRALINE 50MG TABLET PO SCH (08:06)
[2021-02-08] MEDS ORDERED: HYDROXYZINE PAMOATE 50MG CAP PO PRN (08:30)
[2021-02-08] MEDS: LOPERAMIDE 2 MG CAPSULE PO PRN (08:58)
== END 2021-02-08 09:12 | disposition home or self-care (01) | DRG 885 ==
LOC: 3E 16:55
PROVIDERS: ADMIT Psychiatry & Neurology Psychosomatic Medicine; ATTEND Psychiatry & Neurology Psychosomatic Medicine
DX: F33.2 Major depressive disorder, recurrent severe without psychotic features (principal); R45.851 Suicidal ideations; F41.1 Generalized anxiety disorder; F43.10 Post-traumatic stress disorder, unspecified; I10 Essential (primary) hypertension; I25.10 Atherosclerotic heart disease of native coronary artery without angina pectoris; I48.0 Paroxysmal atrial fibrillation; J44.9 Chronic obstructive pulmonary disease, unspecified; N40.1 Benign prostatic hyperplasia with lower urinary tract symptoms; R33.8 Other retention of urine; Z59.0 Homelessness; Z79.82 Long term (current) use of aspirin; Z79.899 Other long term (current) drug therapy; Z87.828 Personal history of other (healed) physical injury and trauma; Z90.81 Acquired absence of spleen; Z88.0 Allergy status to penicillin; Z88.8 Allergy status to other drugs, medicaments and biological substances; F48.8 Other specified nonpsychotic mental disorders; F17.210 Nicotine dependence, cigarettes, uncomplicated; R94.6 Abnormal results of thyroid function studies
CPT/HCPCS: 36415; 71045; 80053; 80061; 80299; 80307; 80320; 80329; 81003; 84439; 84443; 84481; 85025; 87426; 93005; 99285; G0480; Q0177

== ENCOUNTER 2021-04-13 08:13 | Emergency (ER) | payer MEDICAID ==
[~2021-04-13] VITALS: Ht 177.8 cm; Wt 78.0 kg
[~2021-04-13 08:13] MED LIST changes: +ASPI81TA45 PO; +NICO-486 TD; +QUET25TA7 PO; +SERT50TA28 PO
[2021-04-13] MEDS ORDERED: SODIUM CHLORIDE FLUSH 10ML SYR IVF ONE (10:00)
[2021-04-13] MEDS ORDERED: SODIUM CHLORIDE 0.9% 1,000ML IVBOLUS ONE (10:00)
--- NOTE | 2021-04-13 10:20 | NUR ---
pt to room 2 from wall, room secure, sitter monitoring from [facility] for safety. report taken from GARY Wright.
[2021-04-13 10:45] LABS: ANION GAP 8 mmol/L (5-15); CHLORIDE 109 mmol/L (98-107); CREATININE 0.97 mg/dL (0.7-1.3)
[2021-04-13 10:46] LABS: ALBUMIN 3.9 g/dL (3.4-5.0); SALICYLATE LEVEL 3.4 mg/dL (2.8-20.0)
[2021-04-13] MEDS ORDERED: LORazepam 1MG TABLET PO ONE (11:00)
--- NOTE | 2021-04-13 11:01 | NUR ---
PT PRESENTS TO ED WITH CO SUICIDALITY SINCE LAST NIGHT, NO PLAN IN PLACE. PT IS A&O, ANXIOUS BUT COOPERATIVE. PT INSTRUCTED TO PROVIDE URINE SAMPLE. ROOM SECURE, SITTER MONITORING FROM [facility] FOR SAFETY.
[2021-04-13] MEDS ORDERED: LORazepam 1MG TABLET ONE (11:06)
--- NOTE | 2021-04-13 11:15 | NUR ---
PANFILO BARRON AT BEDSIDE FOR PSYCH ASSESSMENT AT THIS TIME. PT IS A&O, RESPS EVEN AND UNLABORED. MEDICATED PER EMAR WITH ATIVAN. PT DENYING SUICIDALITY TO [facility], STATING HIS FEELINGS YESTERDAY WERE CIRCUMSTANTIAL. AWAITING FURTHER ORDERS AT THIS TIME.
[2021-04-13 11:39] VITALS: BP 113/75
--- NOTE | 2021-04-13 11:46 | NUR ---
pt denying SI. pt verbalized safe discharge plan to psych WET SANDER Friend , states he is following up with his outpatient psychiatrist. pt a&ox4, resps even and unlabored, ambualtory to dc desk with steady gait. pt seen by OFELIA Bloom, given cab voucher. pt given back all belongings. pt ambulatory to dc desk with steady gait.
== END 2021-04-13 11:47 | disposition home or self-care (01) ==
LOC: ED 08:30
DX: F33.9 Major depressive disorder, recurrent, unspecified (principal); R45.851 Suicidal ideations; R44.1 Visual hallucinations; F17.200 Nicotine dependence, unspecified, uncomplicated; Z88.0 Allergy status to penicillin; Z88.8 Allergy status to other drugs, medicaments and biological substances
CPT/HCPCS: 36415; 80048; 80299; 80329; 82040; 99285; G0480